=== PATIENT | male | born 1950 | race Caucasian/White ===

== ENCOUNTER → 2016-12-25 | Outpatient (CLI) | payer MEDICARE, MEDICAID | LOC: MW.CHFP 14:12 | PROVIDERS: ATTEND Nurse Practitioner Family | DX: Z12.5 Encounter for screening for malignant neoplasm of prostate (principal); N50.819 Testicular pain, unspecified | CPT/HCPCS: 36415; 81001; 87086; G0103; G0463 ==

== ENCOUNTER → 2017-01-15 | Outpatient (CLI) | payer MEDICARE, MEDICAID | LOC: MW.CHFP 08:00 | PROVIDERS: ATTEND Nurse Practitioner Family | DX: N52.9 Male erectile dysfunction, unspecified (principal) | CPT/HCPCS: G0463 ==

== ENCOUNTER 2017-07-08 14:49 | Emergency (ER) | payer MEDICARE, MEDICAID ==
[2017-07-08] MEDS ORDERED: Sodium Chloride 0.9% 1,000 ML IV ONE ×2 (15:05→16:46)
[2017-07-08] MEDS ORDERED: Sodium Chloride 0.9% 10 ML Syringe FLUSH PRN (15:06)
[2017-07-08] MEDS ORDERED: Sodium Chloride 0.9% 2.5 ML Syringe FLUSH PRN (15:06)
[2017-07-08] MEDS ORDERED: Morphine 2 MG/ML Syringe IVPUSH ONE (15:07)
[2017-07-08] MEDS ORDERED: Ondansetron 4 MG/2 ML SDV IVPUSH ONE (15:07)
--- NOTE | 2017-07-08 15:11 | EDM.PDOC ---
ED HPI GENERAL MEDICAL PROBLEM - General Chief Complaint: Gastrointestinal Problem Stated Complaint: sick Time Seen by Provider: 07/08/17 14:54 Source of Information: Reports: Patient History Limitations: Reports: No Limitations - History of Present Illness INITIAL COMMENTS - FREE TEXT/NARRATIVE: History of present illness: []Patient had food poisoning 7 days ago followed by an episode of diarrhea and one black liquid stool that he had in his sleep. He did not take any meds and has not been able have a bowel movement since then. He complains of abdominal pain and swelling with an episode of vomiting. He denies any fevers or chills but feels ill. Review of systems: As per history of present illness and below otherwise all systems reviewed and negative. Past medical history: As per history of present illness and as reviewed below otherwise noncontributory. Surgical history: As per history of present illness and as reviewed below otherwise noncontributory. Social history: No reported history of drug or alcohol abuse. Family history: As per history of present illness and as reviewed below otherwise noncontributory. Physical exam: General: Well developed, well nourished in NAD HEENT: Atraumatic, normocephalic, pupils reactive, negative for conjunctival pallor or scleral icterus, mucous membranes moist, throat clear, neck supple, nontender, trachea midline. Lungs: Clear to auscultation, breath sounds equal bilaterally, chest nontender. Heart: S1S2, regular, negative for clicks, rubs, or JVD. Abdomen: Tympanitic bowel sounds distended soft, tender to palpation with rebound. Negative for masses or hepatosplenomegaly. Negative for costovertebral tenderness. Pelvis: Stable nontender. Genitourinary: Deferred. Rectal: Deferred. Extremities: Atraumatic, negative for cords or calf pain. Neurovascular unremarkable. Neuro: Awake, alert, oriented. Cranial nerves II through XII unremarkable. Cerebellum unremarkable. Motor and sensory unremarkable throughout. Exam nonfocal. Diagnostics: []Lab are normal CT abdomen and pelvis shows duodenitis and a possible stomach ulcer versus polyp. Therapeutics: []Patient was given Protonix one dose here there is no active bleeding while present Impression: []Duodenitis and gastric ulcer Plan: []I spoke with Dr. GARCES and he will see this patient tomorrow in his office schedule future upper endoscopy. Patient is to stay on Prilosec twice a day. Definitive disposition and diagnosis as appropriate pending reevaluation and review of above. Abdominal Pain Score (Numeric/FACES): 10 - Related Data Allergies Allergy/AdvReac Type Severity Reaction Status Date / Time No Known Allergies Allergy Verified 07/08/17 14:59 Home Meds: Home Meds Fluticasone Furoate [Flonase Sensimist] 1 spray NASBOTH DAILY 07/08/17 [History] Fluticasone/Salmeterol [Advair 250-50 Diskus] 1 puff INH BID 07/08/17 [History] Gabapentin [Neurontin] 300 mg PO TID 07/08/17 [History] Irbesartan [Irbesartan] 150 mg PO DAILY 07/08/17 [History] Meloxicam [Meloxicam] 15 mg PO DAILY PRN 07/08/17 [History] Omeprazole Magnesium [Prilosec] 10 mg PO BID #60 suspdr.pkt 07/08/17 [Rx] Sildenafil Citrate [Sildenafil] 20 mg PO ASDIRECTED PRN 07/08/17 [History] amLODIPine [Norvasc] 10 mg PO DAILY 07/08/17 [History] atorvaSTATin [Lipitor] 10 mg PO ASDIRECTED 07/08/17 [History] traZODone HCl [Trazodone HCl] 100 mg PO BEDTIME 07/08/17 [History] Past Medical History Cardiovascular History: Reports: High Cholesterol, Hypertension Respiratory History: Reports: COPD - Infectious Disease History Infectious Disease History: Reports: Chicken Pox, Measles, Mumps - Past Surgical History Musculoskeletal Surgical History: Reports: Shoulder Surgery Social & Family History - Family History Family Medical History: Noncontributory - Tobacco Use Smoking Status *Q: Current Every Day Smoker Years of Tobacco use: 50 Packs/Tins Daily: 0.5 - Recreational Drug Use Recreational Drug Use: No ED ROS GENERAL - Review of Systems Review Of Systems: See Below (See history of present illness) ED EXAM, GI/ABD - Physical Exam Exam: See Below (See history of present illness) Course - Vital Signs Last Recorded V/S: Last Vital Signs Temp 37.0 C 07/08/17 14:56 Pulse 70 07/08/17 16:30 Resp 16 07/08/17 16:30 BP 111/68 07/08/17 16:30 Pulse Ox 95 07/08/17 16:30 - Orders/Labs/Meds Orders: Active Orders 24 hr Category Date Time Status Abdomen Pelvis w Cont [CT] Stat Exams 07/08/17 16:04 Taken UA W/MICROSCOPIC [URIN] Stat Lab 07/08/17 15:05 Uncollected Sodium Chloride 0.9% [Saline Flush] Med 07/08/17 15:06 Active 10 ml FLUSH ASDIRECTED PRN Sodium Chloride 0.9% [Saline Flush] Med 07/08/17 15:06 Active 2.5 ml FLUSH ASDIRECTED PRN Saline Lock Insert [OM.PC] Stat Oth 07/08/17 15:05 Ordered Medication Orders Sodium Chloride (Saline Flush) 10 ml FLUSH ASDIRECTED PRN PRN Reason: Keep Vein Open Sodium Chloride (Saline Flush) 2.5 ml FLUSH ASDIRECTED PRN PRN Reason: Keep Vein Open Labs: Laboratory Tests 07/08/17 07/08/17 07/08/17 Range/Units 15:14 15:14 15:14 WBC 11.05 H (4.0-11.0) K/uL RBC 5.13 (4.50-5.90) M/uL Hgb 15.4 (13.0-17.0) g/dL Hct 45.7 (38.0-50.0) % MCV 89.1 (80.0-98.0) fL MCH 30.0 (27.0-32.0) pg MCHC 33.7 (31.0-37.0) g/dL RDW Std Deviation 47.0 (28.0-62.0) fl RDW Coeff of Anna Marie 14 (11.0-15.0) % Plt Count 290 (150-400) K/uL MPV 10.30 (7.40-12.00) fL Neut % (Auto) 68.1 (48.0-80.0) % Lymph % (Auto) 20.8 (16.0-40.0) % Archuleta % (Auto) 8.4 (0.0-15.0) % Eos % (Auto) 2.3 (0.0-7.0) % Baso % (Auto) 0.4 (0.0-1.5) % Neut # (Auto) 7.5 H (1.4-5.7) K/uL Lymph # (Auto) 2.3 (0.6-2.4) K/uL Archuleta # (Auto) 0.9 H (0.0-0.8) K/uL Eos # (Auto) 0.3 (0.0-0.7) K/uL Baso # (Auto) 0.0 (0.0-0.1) K/uL Nucleated RBC % 0.0 /100WBC Nucleated RBCs # 0 K/uL Lactate 1.7 (0.20-2.00) mmol/L Sodium 136 (136-146) mmol/L Potassium 4.4 (3.5-5.1) mmol/L Chloride 102 (98-110) mmol/L Carbon Dioxide 26 (21-31) mmol/L BUN 22 (6.0-23.0) mg/dL Creatinine 1.2 (0.6-1.5) mg/dL Est Cr Clr Drug Dosing 66.24 mL/min Estimated GFR (MDRD) > 60.0 ml/min Glucose 125 H (60-110) mg/dL Calcium 9.5 (8.8-10.8) mg/dL Total Bilirubin 0.4 (0.1-1.5) mg/dL AST 10 (5-40) IU/L ALT 11 (8-54) IU/L Alkaline Phosphatase 87 (40-150) Total Protein 7.6 (6.0-8.0) g/dL Albumin 4.1 (3.4-4.8) g/dL Globulin 3.5 (2.0-3.5) g/dL Albumin/Globulin Ratio 1.2 L (1.3-2.8) Lipase 31 (7-80) U/L Blood Type Antibody Screen 07/08/17 Range/Units 15:14 WBC (4.0-11.0) K/uL RBC (4.50-5.90) M/uL Hgb (13.0-17.0) g/dL Hct (38.0-50.0) % MCV (80.0-98.0) fL MCH (27.0-32.0) pg MCHC (31.0-37.0) g/dL RDW Std Deviation (28.0-62.0) fl RDW Coeff of Anna Marie (11.0-15.0) % Plt Count (150-400) K/uL MPV (7.40-12.00) fL Neut % (Auto) (48.0-80.0) % Lymph % (Auto) (16.0-40.0) % Archuleta % (Auto) (0.0-15.0) % Eos % (Auto) (0.0-7.0) % Baso % (Auto) (0.0-1.5) % Neut # (Auto) (1.4-5.7) K/uL Lymph # (Auto) (0.6-2.4) K/uL Archuleta # (Auto) (0.0-0.8) K/uL Eos # (Auto) (0.0-0.7) K/uL Baso # (Auto) (0.0-0.1) K/uL Nucleated RBC % /100WBC Nucleated RBCs # K/uL Lactate (0.20-2.00) mmol/L Sodium (136-146) mmol/L Potassium (3.5-5.1) mmol/L Chloride (98-110) mmol/L Carbon Dioxide (21-31) mmol/L BUN (6.0-23.0) mg/dL Creatinine (0.6-1.5) mg/dL Est Cr Clr Drug Dosing mL/min Estimated GFR (MDRD) ml/min Glucose (60-110) mg/dL Calcium (8.8-10.8) mg/dL Total Bilirubin (0.1-1.5) mg/dL AST (5-40) IU/L ALT (8-54) IU/L Alkaline Phosphatase (40-150) Total Protein (6.0-8.0) g/dL Albumin (3.4-4.8) g/dL Globulin (2.0-3.5) g/dL Albumin/Globulin Ratio (1.3-2.8) Lipase (7-80) U/L Blood Type O POSITIVE Antibody Screen NEGATIVE Meds: Medications Generic Name Dose Route Start Last Admin Trade Name Freq PRN Reason Stop Dose Admin Sodium Chloride 10 ml 07/08/17 15:06 Saline Flush FLUSH ASDIRECTED PRN Keep Vein Open Sodium Chloride 2.5 ml 07/08/17 15:06 Saline Flush FLUSH ASDIRECTED PRN Keep Vein Open Discontinued Medications Generic Name Dose Route Start Last Admin Trade Name Tiera PRN Reason Stop Dose Admin Sodium Chloride 1,000 mls @ 999 mls/hr 07/08/17 15:05 07/08/17 15:28 Normal Saline IV 07/08/17 16:05 999 mls/hr .Bolus ONE Administration Sodium Chloride 1,000 mls @ 999 mls/hr 07/08/17 16:46 07/08/17 17:16 Normal Saline IV 07/08/17 17:46 999 mls/hr .Bolus ONE Administration Iopamidol 90 ml 07/08/17 16:30 07/08/17 16:30 Isovue Multipack-370 (76%) IVPUSH 07/08/17 16:31 90 ml ONETIME STA Administration Morphine Sulfate 2 mg 07/08/17 15:07 07/08/17 15:26 Morphine IVPUSH 07/08/17 15:08 2 mg ONETIME ONE Administration Ondansetron HCl 4 mg 07/08/17 15:07 07/08/17 15:27 Zofran IVPUSH 07/08/17 15:08 4 mg ONETIME ONE Administration Pantoprazole Sodium 80 mg 07/08/17 18:13 Protonix Iv IVPUSH 07/08/17 18:14 .BOLUS ONE Departure - Departure Time of Disposition: 18:30 Disposition: Home, Self-Care 01 Condition: Good Clinical Impression: Duodenitis Gastric ulcer Qualifiers: Gastric ulcer chronicity: unspecified ulcer chronicity Gastric ulcer complication status: with hemorrhage Qualified Code(s): K25.4 - Chronic or unspecified gastric ulcer with hemorrhage - Discharge Information Prescriptions: Omeprazole Magnesium [Prilosec] 10 mg PO BID #60 suspdr.pkt Referrals: Tiffani Cortez NP [Primary Care Provider] - Forms: ED Department Discharge Additional Instructions: The following information is given to patients seen in the emergency department who are being discharged to home. This information is to outline your options for follow-up care. We provide all patients seen in our emergency department with a follow-up referral. The need for follow-up, as well as the timing and circumstances, are variable depending upon the specifics of your emergency department visit. If you don't have a primary care physician on staff, we will provide you with a referral. We always advise you to contact your personal physician following an emergency department visit to inform them of the circumstance of the visit and for follow-up with them and/or the need for any referrals to a consulting specialist. The emergency department will also refer you to a specialist when appropriate. This referral assures that you have the opportunity for follow-up care with a specialist. All of these measure are taken in an effort to provide you with optimal care, which includes your follow-up. Under all circumstances we always encourage you to contact your private physician who remains a resource for coordinating your care. When calling for follow-up care, please make the office aware that this follow-up is from your recent emergency room visit. If for any reason you are refused follow-up, please contact the [facility] Emergency Department at and asked to speak to the emergency department charge nurse. Take Prilosec twice a day follow-up with Dr. Garces tomorrow [facility] Special[facility] - General Surgery Professional Building [address] [place] [address], [address] [place] [address] - My Orders Last 24 Hours: My Active Orders 07/08/17 15:05 UA W/MICROSCOPIC [URIN] Stat Saline Lock Insert [OM.PC] Stat 07/08/17 15:06 Sodium Chloride 0.9% [Saline Flush] 10 ml FLUSH ASDIRECTED PRN Sodium Chloride 0.9% [Saline Flush] 2.5 ml FLUSH ASDIRECTED PRN 07/08/17 16:04 Abdomen Pelvis w Cont [CT] Stat - Assessment/Plan Last 24 Hours: My Active Orders 07/08/17 15:05 UA W/MICROSCOPIC [URIN] Stat Saline Lock Insert [OM.PC] Stat 07/08/17 15:06 Sodium Chloride 0.9% [Saline Flush] 10 ml FLUSH ASDIRECTED PRN Sodium Chloride 0.9% [Saline Flush] 2.5 ml FLUSH ASDIRECTED PRN 07/08/17 16:04 Abdomen Pelvis w Cont [CT] Stat
[2017-07-08 15:50] LABS: CHLORIDE,CL 102 mmol/L (98-110); SODIUM,NA 136 mmol/L (136-146)
--- NOTE | 2017-07-08 16:04 | CR ---
EXAMINATION: Portable chest radiograph. HISTORY: Pain. FINDINGS: The trachea is midline. The cardiomediastinal silhouette is within normal limits. No pulmonary infilt rates, effusions or pneumothorax. Chronic interstitial prominence is noted. Osseous structures appear unremarkable. IMPRESSION: Chronic interstitial changes without acute cardiopulmonary finding.
[2017-07-08] MEDS ORDERED: Iopamidol 755 MG/ML 500 ML Multipack Bottle IVPUSH STA (16:30)
[2017-07-08] MEDS ORDERED: Pantoprazole 40 MG Vial IVPUSH ONE (18:13)
--- NOTE | 2017-07-09 10:16 | CT ---
EXAM DATE: 07/08/17 PATIENT'S AGE: 66 Patient: JAMAR GEORGE Facility: [place], [place] Site . Site : 1950 Study: CT Abdomen/Pelvis [id number] 5:26:44 PM Ordering Physician: Zane Thorne Final Report: INDICATION: Abdominal pain TECHNIQUE: CT abdomen and pelvis acquired with IV contrast. COMPARISON: 09/28/2009 FINDINGS: Lower chest: Mild right lower lobe atelectasis. A 2 millimeter left lower lobe nodule on the 1st image, stable. Liver: Unremarkable. Spleen: Unremarkable. Pancreas: Unremarkable. Gallbladder and bile ducts: Unremarkable. Adrenal glands: Mild adrenal thickening and nodularity again noted. Kidneys: No hydronephrosis. Bilateral renal cysts and subcentimeter low-density lesions. Small amount of increased attenuation along the posterior aspect of the dominant left renal upper pole cyst. GI tract: Wall thickening and edema in the duodenal bulb, more prominent along the medial wall, with a 2.5 x 1.9 centimeter peripherally enhancing outpouching of fluid and gas inferomedially on images 49 -52, not seen on the prior study, compatible with a large deep ulcer versus a new diverticulum. Mild thickening of the gastric antral wall. Stranding adjacent to the proximal duodenum. Fluid- filled abdominal and pelvic small bowel segments are nonspecific, without evidence of high-grade mechanical small bowel obstruction. A normal appendix. No significant pericolonic changes. At least 1 colonic diverticulum seen. Vascular structures: Atherosclerotic changes. Lymph nodes: A borderline portacaval lymph node measuring 1.1 centimeters in short axis on image 50 and additional shotty subcentimeter upper abdominal lymph nodes. Miscellaneous: No significant free fluid or free air. Pelvic Organs: A prominent prostate. A small soft tissue density along the anterior bladder wall probably represents a small urachal remnant. Bones: Unremarkable for age. IMPRESSION: Asymmetrical wall thickening and edema of the duodenal bulb with adjacent stranding consistent with focal duodenitis, with possible involvement of the gastric antrum. A large deep regional ulcer versus a new diverticulum seen. Recommend endoscopic evaluation. Fluid-filled small bowel segments, nonspecific. Mild enteritis is not excluded. Renal cysts. A mildly complicated dominant left renal upper pole cyst. Recommend sonographic correlation. Shotty upper abdominal lymph nodes. A prominent prostate. Dictated by Gunnar Arboleda MD @ 07/08/2017 6:08:52 PM Dictated by: Gunnar Arboleda MD @ 07/08/2017 18:09:08 (Electronic Signature) Report Signed by Proxy. MTDD
== END 2017-07-08 18:40 | disposition home or self-care (01) ==
LOC: MW.ED 14:49
DX: K29.80 Duodenitis without bleeding (principal); K25.4 Chronic or unspecified gastric ulcer with hemorrhage; I10 Essential (primary) hypertension; F17.210 Nicotine dependence, cigarettes, uncomplicated; E78.00 Pure hypercholesterolemia, unspecified; Z79.899 Other long term (current) drug therapy
CPT/HCPCS: 36415; 71010; 74177; 80053; 83605; 83690; 85025; 86850; 86900; 86901; 96361; 96374; 96375; 99284; C9113; J2270; J2405; J7040; Q9967

== ENCOUNTER 2017-08-14 11:34 | Day surgery (SDC) | payer MEDICARE, MEDICAID ==
[~2017-08-14 11:34] MED LIST: Lactated Ringers 1,000 ML IV SCH
[2017-08-14] MEDS ORDERED: Midazolam 1 MG/ML 2 ML SDV ONE (11:49)
[2017-08-14] MEDS ORDERED: fentaNYL 100 MCG/2 ML SDV ONE (11:49)
[2017-08-14] MEDS ORDERED: Propofol 200 MG/20 ML SDV ONE (11:49)
--- NOTE | 2017-08-14 12:30 | PCM.PREANE ---
Preanesthetic Assessment - Anesthesia/Transfusion/Family Hx Anesthesia History: Prior Anesthesia Without Reaction Family History of Anesthesia Reaction: No Transfusion History: No Prior Transfusion(s) Intubation History: Unknown - Review of Systems General: No Symptoms Pulmonary: No Symptoms Cardiovascular: No Symptoms Gastrointestinal: Abdominal Pain Neurological: No Symptoms Other: Reports: None - Physical Assessment O2 Sat by Pulse Oximetry: 97 Respiratory Rate: 16 Vital Signs: Last Vital Signs Temp 35.9 C 08/14/17 12:11 Pulse 97 08/14/17 12:11 Resp 16 08/14/17 12:11 BP 132/94 H 08/14/17 12:11 Pulse Ox 97 08/14/17 12:11 ASA Class: 3 Mental Status: Alert & Oriented x3 Airway Class: Mallampati = 2 Dentition: Reports: Missing Tooth/Teeth (multiple upper and lower) Thyro-Mental Finger Breadths: 3 Mouth Opening Finger Breadths: 2 ROM/Head Extension: Limited/Partial Lungs: Clear to Auscultation, Normal Respiratory Effort, Decreased Breath Sounds Cardiovascular: Regular Rate, Regular Rhythm - Allergies Allergies/Adverse Reactions: Allergies Allergy/AdvReac Type Severity Reaction Status Date / Time No Known Allergies Allergy Verified 07/08/17 14:59 - Blood Blood Available: No - Anesthesia Plan Pre-Op Medication Ordered: None - Acknowledgements Anesthesia Type Planned: MAC Pt an Appropriate Candidate for the Planned Anesthesia: Yes Alternatives and Risks of Anesthesia Discussed w Pt/Guardian: Yes Pt/Guardian Understands and Agrees with Anesthesia Plan: Yes PreAnesthesia Questionnaire HEENT History: Reports: Other (See Below) Other HEENT History: wears reading glasses Cardiovascular History: Reports: High Cholesterol, Hypertension Respiratory History: Reports: COPD, SOB Gastrointestinal History: Reports: GERD Genitourinary History: Reports: None Musculoskeletal History: Reports: Back Pain, Chronic, Fracture Other Musculoskeletal History: hx fx ribs Neurological History: Reports: None Psychiatric History: Reports: Anxiety Endocrine/Metabolic History: Reports: Other (See Below) (borderline diabetic ( prediabetes)) Oncologic (Cancer) History: Reports: Other (See Below) Other Oncologic History: melanoma Dermatologic History: Reports: Melanoma Other Dermatologic History: states melanoma to arms - Infectious Disease History Infectious Disease History: Reports: Chicken Pox, Measles, Mumps - Past Surgical History Head Surgeries/Procedures: Reports: None HEENT Surgical History: Reports: Other (See Below) Other HEENT Surgeries/Procedures: hx exc of jaw cyst, multiple teeth extraction GI Surgical History: Reports: Colonoscopy (in 80's) Musculoskeletal Surgical History: Reports: Shoulder Surgery (left shoulder surgery) Other Surgical History Comment: exc. of benign soft tissue tumor from left side of his neck - SUBSTANCE USE Smoking Status *Q: Current Every Day Smoker (1 ppd, wears nicotin patch) Recreational Drug Use History: No - HOME MEDS Home Medications: Home Meds Fluticasone Furoate [Flonase Sensimist] 1 spray NASBOTH DAILY 07/08/17 [History] Fluticasone/Salmeterol [Advair 250-50 Diskus] 1 puff INH BID 07/08/17 [History] Gabapentin [Neurontin] 300 mg PO TID 07/08/17 [History] Meloxicam [Meloxicam] 15 mg PO DAILY PRN 07/08/17 [History] Omeprazole Magnesium [Prilosec] 10 mg PO BID #60 suspdr.pkt 07/08/17 [Rx] Sildenafil Citrate [Sildenafil] 5 tab PO ASDIRECTED PRN 07/08/17 [History] amLODIPine [Norvasc] 10 mg PO DAILY 07/08/17 [History] atorvaSTATin [Lipitor] 10 mg PO ASDIRECTED 07/08/17 [History] traZODone HCl [Trazodone HCl] 100 mg PO BEDTIME 07/08/17 [History] Chlorhexidine Gluconate [Peridex] 1 dose GARGLE ASDIRECTED PRN 08/13/17 [History ] - CURRENT (IN HOUSE) MEDS Current Meds: Current Medications Lactated Ringer's (Ringers, Lactated) 1,000 mls @ 125 mls/hr IV ASDIRECTED [facility] Last Admin: 08/14/17 12:13 Dose: 125 mls/hr Discontinued Medications Fentanyl (Sublimaze) Confirm Administered Dose 100 mcg .ROUTE .STK-MED ONE Stop: 08/14/17 11:50 Lidocaine HCl (Xylocaine-Mpf 1%) Confirm Administered Dose 5 ml .ROUTE .STK-MED ONE Stop: 08/14/17 11:51 Midazolam HCl (Versed 1 Mg/Ml) Confirm Administered Dose 2 mg .ROUTE .STK-MED ONE Stop: 08/14/17 11:50 Propofol (Diprivan 20 Ml) Confirm Administered Dose 200 mg .ROUTE .[facility]-MED ONE Stop: 08/14/17 11:50
--- NOTE | 2017-08-14 14:23 | PCM.OPNOTE ---
- General Post-Op/Procedure Note Date of Surgery/Procedure: 08/14/17 Operative Procedure(s): egd w bx. colonoscopy w bx Findings: see dictation [id number] Pre Op Diagnosis: abd pain, and gastric ulcer Post-Op Diagnosis: Same Anesthesia Technique: Moderate Sedation Primary Surgeon: Dickson Garces Pathology: egd bx colon 2 mm sessile polyp at 20 cm when scope withdrawal Condition: Good
--- NOTE | 2017-08-14 14:41 | PCM.POSTAN ---
POST ANESTHESIA ASSESSMENT - MENTAL STATUS Mental Status: Alert, Oriented - RESPIRATORY Respiratory Status: Respiratory Rate WNL, Airway Patent, O2 Saturation Stable - CARDIOVASCULAR CV Status: Pulse Rate WNL, Blood Pressure Stable - GASTROINTESTINAL GI Status: No Symptoms - POST OP HYDRATION Hydration Status: Adequate & Stable
--- NOTE | 2017-08-14 15:10 | PCM48HPAN ---
Post Anesthesia Note - EVALUATION WITHIN 48HRS OF ANESTHETIC Vital Signs in Normal Range: Yes Patient Participated in Evaluation: Yes Respiratory Function Stable: Yes Airway Patent: Yes Cardiovascular Function Stable: Yes Hydration Status Stable: Yes Pain Control Satisfactory: Yes Nausea and Vomiting Control Satisfactory: Yes Mental Status Recovered: Yes
--- NOTE | 2017-08-14 20:38 | OR ---
SURGEON: Dickson Garces MD DATE OF PROCEDURE: 08/14/2017 PREOPERATIVE DIAGNOSIS: Abdominal pain and gastric ulcer. POSTOPERATIVE DIAGNOSIS: Abdominal pain and gastric ulcer. PROCEDURE PERFORMED: 1. EGD with biopsy. 2. Colonoscopy with biopsy. PROCEDURE IN DETAIL: EGD: The patient was taken to the endoscopy room, and with the SALES ASSOCIATE CASHIER, Diprivan was administered. A well-lubricated EGD scope was gently inserted through the oropharynx, down the esophagus, passing through the gastroesophageal junction, into the stomach. The mucosa was examined upon the passage. Any etiology will be noted. Once in the stomach, we continued to advance to the distal antrum, passed through the pylorus into the second portion of the duodenum. Again, the mucosa was examined for any abnormality and etiology. The scope was then retrieved back to the stomach and then retroflexed to look at the fundus of the stomach. If a biopsy was indicated, we will biopsy the antrum, body, and gastroesophageal junction. The air will be sucked out while the scope is retrieved to reduce the patient's discomfort. The patient tolerated the procedure well. There were no intraoperative complications. Dr. Garces was present through the whole procedure. Prior to surgery, a time-out had been called, the patient identified, procedure identified and antibiotic administered. Colonoscopy: The patient was taken to the endoscopy room. A time out was called, patient identified, and procedure identified. Diprivan was then administrated. Patient went from awake to sleep, hearing doctor talking or door closing is normal. Perineum inspection and digital examination were then performed. A well-lubricated colonoscope was gently inserted through the rectum, advanced past the rectosigmoid junction, the descending colon, splenic flexure, transverse colon, hepatic flexure, ascending colon, arrived to the cecum. Cecum was identified as dictated in the finding. Then the scope was carefully withdrawn while attention was paid to the mucosal surface for any abnormality. Air will be sucked out during the scope withdrawal. At the rectum, retroflexed to examine any rectal diseases, fistula or hemorrhoids. During mucosal examination, polyp was noted; picture taken and biopsy performed. Patient tolerated procedure well. There were no intraoperative complications, and Dr. Garces was present throughout the whole procedure. FINDINGS: EGD findings: 1. The patient is easily sedated with SALES ASSOCIATE CASHIER and Diprivan. The patient is soundly snoring. 2. Oropharynx and proximal esophagus are free of disease. No stricture, ulceration, inflammation and GE junction at 40 shows mild salmon color change consistent with acid reflux. Stomach rugae is normal in appearance and has a little bit petechiae, hemorrhagic spot, but there is no really bleeding. No bile, no food, no blood. Antrum is little bit inflamed. Duodenum was grossly normal. Retrieved back to the stomach. On retroflexed look at the fundus of stomach, there was no hiatal hernia and sucked out the air while scoped and biopsy of the antrum, body, GE junction, and sucked out the air while scope pulling out. Colonoscopy findings: 1. The patient is easily sedated with SALES ASSOCIATE CASHIER and Diprivan. The patient is soundly snoring. 2. Bowel prep is average with some liquid stool, some bubbles, and no semi- formed stool. 3. The patient's colon rather straight forward. Cecum indicated by ileocecal fold, one-to-one indentation, and light immittance. An appendix orifice and mucosa examined upon scope pulling out with irrigation. The patient has a tiny 2 mm sessile polyp at a distance of 20 when the scope was pulled out, removed with cold biopsy forceps. Otherwise, no diverticulosis, mass, growth, inflammation, stricture, ulceration, bleeding, and stricture inflammation observed. The patient has mild internal hemorrhoids, no external hemorrhoids. In the anal area in the buttock area, there is some skin disease, looked like a blackhead and many of them, and we will discuss that in the followup appointment with the patient. The patient would benefit from repeat colonoscopy 5-10 years from today or if clinically indicated otherwise. As always, thank you for the kind referral. PRIMARY SURGEON: SECONDARY SURGEON: CHAIN PULLER: REASON CHAIN PULLER WAS NECESSARY: ROLE OF CHAIN PULLER: MODE / PREM /[id number] LIDA
== END 2017-08-14 15:00 | disposition home or self-care (01) ==
LOC: MW.SDS 11:34
PROVIDERS: ATTEND Surgery
DX: K63.5 Polyp of colon (principal); K29.50 Unspecified chronic gastritis without bleeding; K20.9 Esophagitis, unspecified; K64.8 Other hemorrhoids; F41.9 Anxiety disorder, unspecified; J44.9 Chronic obstructive pulmonary disease, unspecified; G89.29 Other chronic pain; M54.5 Low back pain; I10 Essential (primary) hypertension; E78.00 Pure hypercholesterolemia, unspecified; E78.1 Pure hyperglyceridemia; Z79.899 Other long term (current) drug therapy; F17.210 Nicotine dependence, cigarettes, uncomplicated
CPT/HCPCS: 43239; 45380; J2250; J3010; J7120; 00740; 88305; 88312; J2704

== ENCOUNTER 2018-03-26 14:02 | Inpatient (IN) | payer MEDICARE, MEDICAID ==
[2018-03-26] MEDS ORDERED: Sodium Chloride 0.9% 1,000 ML IV ONE (14:23)
[2018-03-26] MEDS ORDERED: Sodium Chloride 0.9% 10 ML Syringe FLUSH PRN (14:28)
[2018-03-26] MEDS ORDERED: Sodium Chloride 0.9% 2.5 ML Syringe FLUSH PRN (14:28)
[2018-03-26] MEDS ORDERED: Pantoprazole 40 MG Vial IVPUSH ONE (14:29)
--- NOTE | 2018-03-26 14:37 | EDM.PDOC ---
ED HPI GENERAL MEDICAL PROBLEM - General Chief Complaint: Syncope Stated Complaint: passed out Time Seen by Provider: 03/26/18 14:07 - History of Present Illness INITIAL COMMENTS - FREE TEXT/NARRATIVE: HISTORY AND PHYSICAL: History of present illness: The patient is a 67-year-old male who follows in our clinic with the nurse practitioner has a history of COPD hypertension hypercholesterolemia and still continues to smoke cigarettes and presents with complaints of a syncopal event that was very brief 3 days ago. The patient says that in the fall he had an attack of peptic ulcer disease and had an endoscopy and colonoscopy with Dr. Garces. I've reviewed that operative note from August 14. He was told that he had a gastric ulcer and he was placed on antacids which he took for a while but he stopped them. He says that 2-3 weeks ago he had another "peptic ulcer disease attack" and he was very constipated for almost a week and then he took a laxative and had copious amounts of black stool. The patient says that 3 days ago he was out in the heat he got lightheaded and the next thing he remembers was being on the wound but was only unconscious briefly. He denies any trauma as a result of that event. He's had no headache neck or back pain no extremity complaints and no sequela of that event. He's had no chest pain or shortness of breath and no abdominal pain. Patient says that he had a bowel movement today which looked normal to him and he has not taken any [id number] meds such as Maalox or Mylanta or Pepto-Bismol. He says he stopped the aunt acid that he was given after his endoscopy and he was only here in the ED as he tried to make an appointment to see his provider in the clinic and was referred here due to these events. He currently does not feel short of breath and has no chest pain and has actually no complaints other than being concerned about his episode of passing out and having generalized weakness. He says he been eating normally. Review of systems: As per history of present illness and below otherwise all systems reviewed and negative. Past medical history: As per history of present illness and as reviewed below otherwise noncontributory. Surgical history: As per history of present illness and as reviewed below otherwise noncontributory. Social history: No reported history of drug or alcohol abuse. Family history: As per history of present illness and as reviewed below otherwise noncontributory. Physical exam: General: Well-developed well-nourished thin man whose vital signs are noted by me. He is very pale appearing overall and somewhat malnourished appearing. HEENT: Atraumatic, normocephalic, pupils reactive, positive for conjunctival pallor , no scleral icterus, mucous membranes tacky, throat clear, neck supple, nontender, trachea midline. There is no evidence of any scalp trauma or bony defects or tenderness of the cervical spine Lungs: Clear to auscultation with scattered wheezing bilaterally but no work of breathing or stridor, breath sounds equal bilaterally, chest nontender. Heart: S1S2, regular rhythm slightly tachycardic rate on my evaluation, negative for clicks, rubs, or JVD. Abdomen: Soft, nondistended, nontender. His abdomen is rotund and there is slight tympany on percussion but bowel sounds are normoactive. Negative for masses or hepatosplenomegaly. Negative for costovertebral tenderness. Pelvis: Stable nontender. Genitourinary: Deferred. Rectal: Normal tone and only scant stool in the vault which is Hemoccult positive it looked brown in color Extremities: Atraumatic, negative for cords or calf pain. Neurovascular unremarkable. Full range of motion without defects or deficits Neuro: Awake, alert, oriented. Cranial nerves II through XII unremarkable. Cerebellum unremarkable. Motor and sensory unremarkable throughout. Exam nonfocal. Back: There are no midline step-offs in his defects of the thoracic or lumbar spine and no soft tissue evidence of any trauma Diagnostics: EKG CBC CMP amylase lipase INR type and screen chest x-ray UA H pylori EtOH level Therapeutics: IV O2 monitor IV fluids Protonix bolus Protonix drip, 1 unit of packed red blood cells 1615: As was discussed with our hospitalist Dr. Andrade was aware of all testing results and would like me to order a unit of blood and a Protonix drip. He accepts the patient for admission. Patient is aware of this plan and accepts. Patient has maintained his blood pressure and pulse throughout his stay here. Impression: Syncopal event 3 days ago, upper GI bleed with symptomatic anemia stable Definitive disposition and diagnosis as appropriate pending reevaluation and review of above. Left Upper Abdomen Pain Score (Numeric/FACES): 2 - Related Data Allergies Allergy/AdvReac Type Severity Reaction Status Date / Time No Known Allergies Allergy Verified 03/26/18 14:26 Home Meds: Home Meds Fluticasone Furoate [Flonase Sensimist] 1 spray NASBOTH DAILY 07/08/17 [History] Fluticasone/Salmeterol [Advair 250-50 Diskus] 1 puff INH BID 07/08/17 [History] Gabapentin [Neurontin] 300 mg PO TID 07/08/17 [History] Meloxicam 15 mg PO DAILY PRN 07/08/17 [History] Omeprazole Magnesium [Prilosec] 10 mg PO BID #60 suspdr.pkt 07/08/17 [Rx] Sildenafil Citrate [Sildenafil] 5 tab PO ASDIRECTED PRN 07/08/17 [History] amLODIPine [Norvasc] 10 mg PO DAILY 07/08/17 [History] atorvaSTATin [Lipitor] 10 mg PO ASDIRECTED 07/08/17 [History] traZODone HCl [Trazodone HCl] 100 mg PO BEDTIME 07/08/17 [History] Gabapentin [Neurontin] 300 mg PO BID 03/26/18 [History] Irbesartan 150 mg PO DAILY 03/26/18 [History] Past Medical History HEENT History: Reports: Other (See Below) Other HEENT History: wears reading glasses Cardiovascular History: Reports: High Cholesterol, Hypertension Respiratory History: Reports: COPD, SOB Gastrointestinal History: Reports: GERD Genitourinary History: Reports: None Musculoskeletal History: Reports: Back Pain, Chronic, Fracture Other Musculoskeletal History: hx fx ribs Neurological History: Reports: None Psychiatric History: Reports: Anxiety Endocrine/Metabolic History: Reports: Other (See Below) (borderline diabetic ( prediabetes)) Oncologic (Cancer) History: Reports: Other (See Below) Other Oncologic History: melanoma Dermatologic History: Reports: Melanoma Other Dermatologic History: states melanoma to arms - Infectious Disease History Infectious Disease History: Reports: Chicken Pox, Measles, Mumps - Past Surgical History Head Surgeries/Procedures: Reports: None HEENT Surgical History: Reports: Other (See Below) Other HEENT Surgeries/Procedures: hx exc of jaw cyst, multiple teeth extraction GI Surgical History: Reports: Colonoscopy (in 80's) Musculoskeletal Surgical History: Reports: Shoulder Surgery (left shoulder surgery) Other Surgical History Comment: exc. of benign soft tissue tumor from left side of his neck Social & Family History - Family History Family Medical History: Noncontributory ED ROS GENERAL - Review of Systems Review Of Systems: ROS reveals no pertinent complaints other than HPI. ED EXAM, GENERAL - Physical Exam Exam: See Below (See dictation) Course - Vital Signs Last Recorded V/S: Last Vital Signs Temp 36.4 C 03/26/18 16:04 Pulse 98 03/26/18 16:04 Resp 14 03/26/18 16:04 BP 107/68 03/26/18 16:04 Pulse Ox 97 03/26/18 16:04 - Orders/Labs/Meds Orders: Active Orders 24 hr Category Date Time Status Patient Status [ADT] Stat ADT 03/26/18 16:34 Ordered Cardiac Monitoring [RC] . DIRECTED Care 03/26/18 14:27 Active EKG Documentation Completion [RC] STAT Care 03/26/18 14:27 Active Oxygen Therapy, ED [RC] ASDIRECTED Care 03/26/18 14:27 Active Pulse Oximetry [RC] ASDIRECTED Care 03/26/18 14:27 Active RED BLOOD CELLS LP [BBK] Stat Lab 03/26/18 16:33 Ordered TYPE AND SCREEN [BBK] Stat Lab 03/26/18 14:35 Results UA W/MICROSCOPIC [URIN] Stat Lab 03/26/18 16:10 Ordered Pantoprazole [ProTONIX IV] 80 mg Med 03/26/18 16:45 Ordered Sodium Chloride 0.9% [Normal Saline] 100 ml IV .Continuous Sodium Chloride 0.9% [Normal Saline] 1,000 ml Med 03/26/18 16:15 Active IV ASDIRECTED Sodium Chloride 0.9% [Saline Flush] Med 03/26/18 14:28 Active 10 ml FLUSH ASDIRECTED PRN Sodium Chloride 0.9% [Saline Flush] Med 03/26/18 14:28 Active 2.5 ml FLUSH ASDIRECTED PRN Saline Lock Insert [OM.PC] Stat Oth 03/26/18 14:27 Ordered Transfuse Red Blood Cells [COMM] Stat Oth 03/26/18 16:33 Ordered Medication Orders Sodium Chloride (Normal Saline) 1,000 mls @ 125 mls/hr IV ASDIRECTED SHEELA Pantoprazole Sodium 80 mg/ (Sodium Chloride) 100 mls @ 10 mls/hr IV .Continuous SHEELA Sodium Chloride (Saline Flush) 10 ml FLUSH ASDIRECTED PRN PRN Reason: Keep Vein Open Sodium Chloride (Saline Flush) 2.5 ml FLUSH ASDIRECTED PRN PRN Reason: Keep Vein Open Labs: Laboratory Tests 03/26/18 03/26/18 03/26/18 Range/Units 14:23 14:23 14:23 WBC 15.89 H (4.0-11.0) K/uL RBC 2.54 L (4.50-5.90) M/uL Hgb 7.7 L (13.0-17.0) g/dL Hct 23.6 L (38.0-50.0) % MCV 92.9 (80.0-98.0) fL MCH 30.3 (27.0-32.0) pg MCHC 32.6 (31.0-37.0) g/dL RDW Std Deviation 53.1 (28.0-62.0) fl RDW Coeff of Anna Marie 17 H (11.0-15.0) % Plt Count 507 H (150-400) K/uL MPV 9.00 (7.40-12.00) fL Add Manual Diff YES Neutrophils % (Manual) 62 (48.0-80.0) % Band Neutrophils % 2 % Lymphocytes % (Manual) 25 (16.0-40.0) % Monocytes % (Manual) 6 (0.0-15.0) % Eosinophils % (Manual) 5 (0.0-7.0) % Nucleated RBC % 0.6 /100WBC Absolute Seg Neuts 9.9 H (1.4-5.7) Band Neutrophils # 0.3 Lymphocytes # (Manual) 4.0 H (0.6-2.4) Monocytes # (Manual) 1.0 H (0.0-0.8) Eosinophils # (Manual) 0.8 H (0.0-0.7) Nucleated RBCs # 0 K/uL INR 0.95 Sodium 135 L (136-148) mmol/L Potassium 4.1 (3.5-5.1) mmol/L Chloride 100 (98-107) mmol/L Carbon Dioxide 28.0 (21.0-32.0) mmol/L BUN 15 (7.0-18.0) mg/dL Creatinine 1.2 (0.8-1.3) mg/dL Est Cr Clr Drug Dosing 64.97 mL/min Estimated GFR (MDRD) > 60.0 ml/min Glucose 101 (74-106) mg/dL Calcium 8.3 L (8.5-10.1) mg/dL Total Bilirubin 0.1 L (0.2-1.0) mg/dL AST 10 L (15-37) IU/L ALT 25 (14-63) IU/L Alkaline Phosphatase 57 (46-116) U/L Total Protein 6.2 L (6.4-8.2) g/dL Albumin 3.0 L (3.4-5.0) g/dL Globulin 3.2 (2.0-3.5) g/dL Albumin/Globulin Ratio 0.9 L (1.3-2.8) Amylase 95 (25-115) U/L Lipase (73-393) U/L Urine Color Urine Appearance Urine pH (5.0-8.0) Ur Specific [place] (1.001-1.035) Urine Protein (NEGATIVE) mg/dL Urine Glucose (UA) (NEGATIVE) mg/dL Urine Ketones (NEGATIVE) mg/dL Urine Occult Blood (NEGATIVE) Urine Nitrite (NEGATIVE) Urine Bilirubin (NEGATIVE) Urine Urobilinogen (<2.0) EU/dL Ur Leukocyte Esterase (NEGATIVE) Urine RBC (0-2/HPF) Urine WBC (0-5/HPF) Ur Epithelial Cells (NONE-FEW) Urine Bacteria (NEGATIVE) Ethyl Alcohol mg/dL H. pylori IgG Antibody (NEG) Blood Type Antibody Screen Crossmatch 03/26/18 03/26/18 03/26/18 Range/Units 14:23 14:23 14:23 WBC (4.0-11.0) K/uL RBC (4.50-5.90) M/uL Hgb (13.0-17.0) g/dL Hct (38.0-50.0) % MCV (80.0-98.0) fL MCH (27.0-32.0) pg MCHC (31.0-37.0) g/dL RDW Std Deviation (28.0-62.0) fl RDW Coeff of Anna Marie (11.0-15.0) % Plt Count (150-400) K/uL MPV (7.40-12.00) fL Add Manual Diff Neutrophils % (Manual) (48.0-80.0) % Band Neutrophils % % Lymphocytes % (Manual) (16.0-40.0) % Monocytes % (Manual) (0.0-15.0) % Eosinophils % (Manual) (0.0-7.0) % Nucleated RBC % /100WBC Absolute Seg Neuts (1.4-5.7) Band Neutrophils # Lymphocytes # (Manual) (0.6-2.4) Monocytes # (Manual) (0.0-0.8) Eosinophils # (Manual) (0.0-0.7) Nucleated RBCs # K/uL INR Sodium (136-148) mmol/L Potassium (3.5-5.1) mmol/L Chloride (98-107) mmol/L Carbon Dioxide (21.0-32.0) mmol/L BUN (7.0-18.0) mg/dL Creatinine (0.8-1.3) mg/dL Est Cr Clr Drug Dosing mL/min Estimated GFR (MDRD) ml/min Glucose (74-106) mg/dL Calcium (8.5-10.1) mg/dL Total Bilirubin (0.2-1.0) mg/dL AST (15-37) IU/L ALT (14-63) IU/L Alkaline Phosphatase (46-116) U/L Total Protein (6.4-8.2) g/dL Albumin (3.4-5.0) g/dL Globulin (2.0-3.5) g/dL Albumin/Globulin Ratio (1.3-2.8) Amylase (25-115) U/L Lipase 238 (73-393) U/L Urine Color Urine Appearance Urine pH (5.0-8.0) Ur Specific [place] (1.001-1.035) Urine Protein (NEGATIVE) mg/dL Urine Glucose (UA) (NEGATIVE) mg/dL Urine Ketones (NEGATIVE) mg/dL Urine Occult Blood (NEGATIVE) Urine Nitrite (NEGATIVE) Urine Bilirubin (NEGATIVE) Urine Urobilinogen (<2.0) EU/dL Ur Leukocyte Esterase (NEGATIVE) Urine RBC (0-2/HPF) Urine WBC (0-5/HPF) Ur Epithelial Cells (NONE-FEW) Urine Bacteria (NEGATIVE) Ethyl Alcohol < 3.0 mg/dL H. pylori IgG Antibody NEGATIVE (NEG) Blood Type Antibody Screen Crossmatch 03/26/18 03/26/18 Range/Units 14:35 16:10 WBC (4.0-11.0) K/uL RBC (4.50-5.90) M/uL Hgb (13.0-17.0) g/dL Hct (38.0-50.0) % MCV (80.0-98.0) fL MCH (27.0-32.0) pg MCHC (31.0-37.0) g/dL RDW Std Deviation (28.0-62.0) fl RDW Coeff of Anna Marie (11.0-15.0) % Plt Count (150-400) K/uL MPV (7.40-12.00) fL Add Manual Diff Neutrophils % (Manual) (48.0-80.0) % Band Neutrophils % % Lymphocytes % (Manual) (16.0-40.0) % Monocytes % (Manual) (0.0-15.0) % Eosinophils % (Manual) (0.0-7.0) % Nucleated RBC % /100WBC Absolute Seg Neuts (1.4-5.7) Band Neutrophils # Lymphocytes # (Manual) (0.6-2.4) Monocytes # (Manual) (0.0-0.8) Eosinophils # (Manual) (0.0-0.7) Nucleated RBCs # K/uL INR Sodium (136-148) mmol/L Potassium (3.5-5.1) mmol/L Chloride (98-107) mmol/L Carbon Dioxide (21.0-32.0) mmol/L BUN (7.0-18.0) mg/dL Creatinine (0.8-1.3) mg/dL Est Cr Clr Drug Dosing mL/min Estimated GFR (MDRD) ml/min Glucose (74-106) mg/dL Calcium (8.5-10.1) mg/dL Total Bilirubin (0.2-1.0) mg/dL AST (15-37) IU/L ALT (14-63) IU/L Alkaline Phosphatase (46-116) U/L Total Protein (6.4-8.2) g/dL Albumin (3.4-5.0) g/dL Globulin (2.0-3.5) g/dL Albumin/Globulin Ratio (1.3-2.8) Amylase (25-115) U/L Lipase (73-393) U/L Urine Color YELLOW Urine Appearance CLEAR Urine pH 6.0 (5.0-8.0) Ur Specific [place] 1.010 (1.001-1.035) Urine Protein NEGATIVE (NEGATIVE) mg/dL Urine Glucose (UA) NEGATIVE (NEGATIVE) mg/dL Urine Ketones NEGATIVE (NEGATIVE) mg/dL Urine Occult Blood NEGATIVE (NEGATIVE) Urine Nitrite NEGATIVE (NEGATIVE) Urine Bilirubin NEGATIVE (NEGATIVE) Urine Urobilinogen 0.2 (<2.0) EU/dL Ur Leukocyte Esterase NEGATIVE (NEGATIVE) Urine RBC 0-1 (0-2/HPF) Urine WBC 0-1 (0-5/HPF) Ur Epithelial Cells RARE (NONE-FEW) Urine Bacteria RARE (NEGATIVE) Ethyl Alcohol mg/dL H. pylori IgG Antibody (NEG) Blood Type O POSITIVE Antibody Screen NEGATIVE Crossmatch See Detail Meds: Medications Generic Name Dose Route Start Last Admin Trade Name Freq PRN Reason Stop Dose Admin Sodium Chloride 1,000 mls @ 125 mls/hr 03/26/18 16:15 Normal Saline IV ASDIRECTED SHEELA Pantoprazole Sodium 80 mg/ 100 mls @ 10 mls/hr 03/26/18 16:45 Sodium Chloride IV .Continuous SHEELA Sodium Chloride 10 ml 03/26/18 14:28 Saline Flush FLUSH ASDIRECTED PRN Keep Vein Open Sodium Chloride 2.5 ml 03/26/18 14:28 Saline Flush FLUSH ASDIRECTED PRN Keep Vein Open Discontinued Medications Generic Name Dose Route Start Last Admin Trade Name Freq PRN Reason Stop Dose Admin Sodium Chloride 1,000 mls @ 999 mls/hr 03/26/18 14:23 03/26/18 14:41 Normal Saline IV 03/26/18 15:23 999 mls/hr .Bolus ONE Administration Pantoprazole Sodium 80 mg 03/26/18 14:29 03/26/18 14:44 Protonix Iv IVPUSH 03/26/18 14:30 80 mg .BOLUS ONE Administration Departure - Departure Time of Disposition: 16:43 Disposition: Admitted As Inpatient 68 Condition: Good Clinical Impression: Anemia Qualifiers: Anemia type: unspecified type Qualified Code(s): D64.9 - Anemia, unspecified Syncope Qualifiers: Syncope type: unspecified Qualified Code(s): R55 - Syncope and collapse - Discharge Information Referrals: Tiffani Cortez NP [Primary Care Provider] - Forms: ED Department Discharge - My Orders Last 24 Hours: My Active Orders 03/26/18 14:27 Cardiac Monitoring [RC] . DIRECTED EKG Documentation Completion [RC] STAT Oxygen Therapy, ED [RC] ASDIRECTED Pulse Oximetry [RC] ASDIRECTED Saline Lock Insert [OM.PC] Stat 03/26/18 14:28 Sodium Chloride 0.9% [Saline Flush] 10 ml FLUSH ASDIRECTED PRN Sodium Chloride 0.9% [Saline Flush] 2.5 ml FLUSH ASDIRECTED PRN 03/26/18 14:35 TYPE AND SCREEN [BBK] Stat 03/26/18 16:10 UA W/MICROSCOPIC [URIN] Stat 03/26/18 16:15 Sodium Chloride 0.9% [Normal Saline] 1,000 ml IV ASDIRECTED 03/26/18 16:33 RED BLOOD CELLS LP [BBK] Stat Transfuse Red Blood Cells [COMM] Stat 03/26/18 16:34 Patient Status [ADT] Stat 03/26/18 16:45 Pantoprazole [ProTONIX IV] 80 mg Sodium Chloride 0.9% [Normal Saline] 100 ml IV .Continuous - Assessment/Plan Last 24 Hours: My Active Orders 03/26/18 14:27 Cardiac Monitoring [RC] . DIRECTED EKG Documentation Completion [RC] STAT Oxygen Therapy, ED [RC] ASDIRECTED Pulse Oximetry [RC] ASDIRECTED Saline Lock Insert [OM.PC] Stat 03/26/18 14:28 Sodium Chloride 0.9% [Saline Flush] 10 ml FLUSH ASDIRECTED PRN Sodium Chloride 0.9% [Saline Flush] 2.5 ml FLUSH ASDIRECTED PRN 03/26/18 14:35 TYPE AND SCREEN [BBK] Stat 03/26/18 16:10 UA W/MICROSCOPIC [URIN] Stat 03/26/18 16:15 Sodium Chloride 0.9% [Normal Saline] 1,000 ml IV ASDIRECTED 03/26/18 16:33 RED BLOOD CELLS LP [BBK] Stat Transfuse Red Blood Cells [COMM] Stat 03/26/18 16:34 Patient Status [ADT] Stat 03/26/18 16:45 Pantoprazole [ProTONIX IV] 80 mg Sodium Chloride 0.9% [Normal Saline] 100 ml IV .Continuous
[2018-03-26 15:19] LABS: CHLORIDE,CL 100 mmol/L (98-107); SODIUM,NA 135 mmol/L (136-148)
--- NOTE | 2018-03-26 15:28 | CR ---
EXAMINATION: Portable chest radiograph. HISTORY: Shortness of breath. COMPARISON: 07/08/2017. FINDINGS: The trachea is midline. The cardiomediastinal silhouette is within normal limits. No pulmonary infilt rates, effusions or pneumothorax. Mild chronic interstitial prominence and hyperinflation. Osseous structures appear unremarkable. IMPRESSION: No acute cardiopulmonary process.
[2018-03-26] MEDS ORDERED: Sodium Chloride 0.9% 1,000 ML IV SCH (16:15)
[2018-03-26] MEDS ORDERED: Pantoprazole 80 MG in Sodium Chloride 0.9% 100 ML IV SCH (16:45)
--- NOTE | 2018-03-26 17:18 | PCM.HP ---
H&P History of Present Illness - General Date of Service: 03/26/18 Admit Problem/Dx: Admission Diagnosis/Problem Admission Diagnosis/Problem Syncope/ Upper GI bleed Source of Information: Patient History Limitations: Reports: No Limitations - History of Present Illness Initial Comments - Free Text/Narative: This 67 year old male with pmh of COPD, tobacco abuse, and PUD presented to the ED today with complaints of syncope 3 days ago. he wsa attempting to get an appointment with his PCP, but they recommended he be evaluated in the ED. He reports he has a ulcer attack 2-3 weeks ago followed by some constipation in which he took a laxative and subsequently had a very large black stool follow by liquid. Denies arminda blood per stools. Had a stool today that was streaked with black, but appeared "fairly normal." He reports feeling pretty lousy, fatigued and lightheaded if he moves too fast. NO chest pain or palpitations and no shortness of breath. Reports chronic cough, congested, not really productive. No fevers or chills at home. Scant LUQ pain. Denies heavy alcohol use, has not drank in 3-4 months. No NSAID use. Drinks pop, no coffee. Does like spicier foods. He thought his syncope was secondary to being hot and outside working. The patient says that 3 days ago he was out in the heat he got lightheaded and the next thing he remembers was being on the gound but was only unconscious briefly. He denies hitting his head, no headache or neck pain. Reports eating and drinking normally. He is currently in the process of quitting smoking, down to 1/2 ppd from 1 /2 ppd for 50+ years. No recreational drug use. In July he had EGD and colonoscopy with Dr Garces, which revealed PUD. He was treated with Prilosec, which he reports taking for approximately 3-4 months then stopped and has been good up until 2-3 weeks ago. In the ED leukocytosis noted at 15,890 hgb 7.7 HCT 23.6, Platelets 507. Na 135, BUN 15, Cr 1.2. H pylori negative. CXR engative. BPs noted to be 90-100/60s HR 90-100s. No hypoxia noted. He was treated with IVFs and Protonix bolus 80 mg PCP, Tiffani Cortez NP Upon review of clinic chart, he is on Meloxicam for arthritic pain. Left Upper Abdomen Pain Score (Numeric/FACES): 2 - Related Data Allergies/Adverse Reactions: Allergies Allergy/AdvReac Type Severity Reaction Status Date / Time No Known Allergies Allergy Verified 03/26/18 14:26 Home Medications: Home Meds Fluticasone Furoate [Flonase Sensimist] 1 spray NASBOTH DAILY 07/08/17 [History] Fluticasone/Salmeterol [Advair 250-50 Diskus] 1 puff INH BID 07/08/17 [History] Gabapentin [Neurontin] 300 mg PO TID 07/08/17 [History] Meloxicam 15 mg PO DAILY PRN 07/08/17 [History] Omeprazole Magnesium [Prilosec] 10 mg PO BID #60 suspdr.pkt 07/08/17 [Rx] Sildenafil Citrate [Sildenafil] 5 tab PO ASDIRECTED PRN 07/08/17 [History] amLODIPine [Norvasc] 10 mg PO DAILY 07/08/17 [History] atorvaSTATin [Lipitor] 10 mg PO ASDIRECTED 07/08/17 [History] traZODone HCl [Trazodone HCl] 100 mg PO BEDTIME 07/08/17 [History] Gabapentin [Neurontin] 300 mg PO BID 03/26/18 [History] Irbesartan 150 mg PO DAILY 03/26/18 [History] Pantoprazole Sodium [Protonix] 40 mg PO BID #60 tablet. 03/26/18 [Rx] Sucralfate [Carafate] 1 gm PO QIDACANDBED #120 tablet 03/26/18 [Rx] Past Medical History HEENT History: Reports: Other (See Below) Other HEENT History: wears reading glasses Cardiovascular History: Reports: High Cholesterol, Hypertension. Denies: CAD, NC Respiratory History: Reports: COPD, SOB Gastrointestinal History: Reports: GERD, PUD Genitourinary History: Reports: None Musculoskeletal History: Reports: Back Pain, Chronic, Fracture Other Musculoskeletal History: hx fx ribs Neurological History: Reports: None. Denies: CVA, Migraines, TIA Psychiatric History: Reports: Anxiety Endocrine/Metabolic History: Reports: Other (See Below) (borderline diabetic ( prediabetes)) Oncologic (Cancer) History: Reports: Other (See Below) Other Oncologic History: melanoma Dermatologic History: Reports: Melanoma Other Dermatologic History: states melanoma to arms - Infectious Disease History Infectious Disease History: Reports: Chicken Pox, Measles, Mumps - Past Surgical History Head Surgeries/Procedures: Reports: None HEENT Surgical History: Reports: Other (See Below) Other HEENT Surgeries/Procedures: hx exc of jaw cyst, multiple teeth extraction GI Surgical History: Reports: Colonoscopy (in 80's), EGD Musculoskeletal Surgical History: Reports: Shoulder Surgery (left shoulder surgery) Other Surgical History Comment: exc. of benign soft tissue tumor from left side of his neck Social & Family History - Family History Family Medical History: Noncontributory - Tobacco Use Smoking Status *Q: Current Every Day Smoker Years of Tobacco use: 50 Packs/Tins Daily: 0.5 Smoking Cessation Information Provided To Patient: Yes - Caffeine Use Caffeine Use: Reports: Soda - Alcohol Use Alcohol Use History: No Alcohol Use Frequency: Rarely - Recreational Drug Use Recreational Drug Use: No - Living Situation & Occupation Living situation: Reports: Single Occupation: Employed H&P Review of Systems - Review of Systems: Review Of Systems: See Below General: Reports: Malaise, Weakness, Fatigue. Denies: Fever, Chills, Decreased Appetite HEENT: Reports: No Symptoms. Denies: Headaches, Sinus Congestion, Sore Throat, Visual Changes Pulmonary: Reports: Cough (chronic). Denies: Shortness of Breath, Wheezing Cardiovascular: Reports: Lightheadedness, Syncope. Denies: Chest Pain, Palpitations Gastrointestinal: Reports: Abdominal Pain (intermittent LUQ), Black Stool, Melena. Denies: Bloody Stool, Nausea, Vomiting Genitourinary: Reports: No Symptoms. Denies: Dysuria, Frequency, Burning Musculoskeletal: Reports: No Symptoms Skin: Reports: No Symptoms Psychiatric: Reports: No Symptoms Neurological: Reports: No Symptoms Hematologic/Lymphatic: Reports: No Symptoms Immunologic: Reports: No Symptoms Exam - Exam Exam: See Below - Vital Signs Vital Signs: Last Vital Signs Temp 97.6 F 03/26/18 16:04 Pulse 98 03/26/18 16:04 Resp 14 03/26/18 16:04 BP 107/68 03/26/18 16:04 Pulse Ox 97 03/26/18 16:04 Weight: 74.843 kg - Exam Quality Assessment: DVT Prophylaxis General: Alert, Oriented, Cooperative, Other (pale) HEENT: Conjunctiva Clear, Mucosa Moist & [place], Posterior Pharynx Clear Neck: Supple, Trachea Midline, Full Range of Motion Lungs: Wheezing (scant wheezing noted. patient reports he feels fine. Note congested moist cough, but non productive.) Cardiovascular: Regular Rate, Regular Rhythm, Normal S1, Normal S2. No: Systolic Murmur GI/Abdominal Exam: Normal Bowel Sounds, Soft, No Distention, Tender (scant tenderness to LUQ gastric region). No: Splenomegaly Back Exam: Normal Inspection, Full Range of Motion Extremities: Normal Inspection, Normal Range of Motion, Non-Tender, No Pedal Edema Neurological: Cranial Nerves Intact Neuro Extensive - Mental Status: Alert, Oriented x3 Psychiatric: Alert, Normal Affect, Normal Mood - Patient Data Lab Results Last 24 hrs: Laboratory Results - last 24 hr 03/26/18 03/26/18 03/26/18 Range/Units 14:23 14:23 14:23 WBC 15.89 H (4.0-11.0) K/uL RBC 2.54 L (4.50-5.90) M/uL Hgb 7.7 L (13.0-17.0) g/dL Hct 23.6 L (38.0-50.0) % MCV 92.9 (80.0-98.0) fL MCH 30.3 (27.0-32.0) pg MCHC 32.6 (31.0-37.0) g/dL RDW Std Deviation 53.1 (28.0-62.0) fl RDW Coeff of Anna Marie 17 H (11.0-15.0) % Plt Count 507 H (150-400) K/uL MPV 9.00 (7.40-12.00) fL Add Manual Diff YES Neutrophils % (Manual) 62 (48.0-80.0) % Band Neutrophils % 2 % Lymphocytes % (Manual) 25 (16.0-40.0) % Monocytes % (Manual) 6 (0.0-15.0) % Eosinophils % (Manual) 5 (0.0-7.0) % Nucleated RBC % 0.6 /100WBC Absolute Seg Neuts 9.9 H (1.4-5.7) Band Neutrophils # 0.3 Lymphocytes # (Manual) 4.0 H (0.6-2.4) Monocytes # (Manual) 1.0 H (0.0-0.8) Eosinophils # (Manual) 0.8 H (0.0-0.7) Nucleated RBCs # 0 K/uL INR 0.95 Sodium 135 L (136-148) mmol/L Potassium 4.1 (3.5-5.1) mmol/L Chloride 100 (98-107) mmol/L Carbon Dioxide 28.0 (21.0-32.0) mmol/L BUN 15 (7.0-18.0) mg/dL Creatinine 1.2 (0.8-1.3) mg/dL Est Cr Clr Drug Dosing 64.97 mL/min Estimated GFR (MDRD) > 60.0 ml/min Glucose 101 (74-106) mg/dL Calcium 8.3 L (8.5-10.1) mg/dL Total Bilirubin 0.1 L (0.2-1.0) mg/dL AST 10 L (15-37) IU/L ALT 25 (14-63) IU/L Alkaline Phosphatase 57 (46-116) U/L Total Protein 6.2 L (6.4-8.2) g/dL Albumin 3.0 L (3.4-5.0) g/dL Globulin 3.2 (2.0-3.5) g/dL Albumin/Globulin Ratio 0.9 L (1.3-2.8) Amylase 95 (25-115) U/L Lipase (73-393) U/L Urine Color Urine Appearance Urine pH (5.0-8.0) Ur Specific [place] (1.001-1.035) Urine Protein (NEGATIVE) mg/dL Urine Glucose (UA) (NEGATIVE) mg/dL Urine Ketones (NEGATIVE) mg/dL Urine Occult Blood (NEGATIVE) Urine Nitrite (NEGATIVE) Urine Bilirubin (NEGATIVE) Urine Urobilinogen (<2.0) EU/dL Ur Leukocyte Esterase (NEGATIVE) Urine RBC (0-2/HPF) Urine WBC (0-5/HPF) Ur Epithelial Cells (NONE-FEW) Urine Bacteria (NEGATIVE) Ethyl Alcohol mg/dL H. pylori IgG Antibody (NEG) Blood Type Antibody Screen Crossmatch 03/26/18 03/26/18 03/26/18 Range/Units 14:23 14:23 14:23 WBC (4.0-11.0) K/uL RBC (4.50-5.90) M/uL Hgb (13.0-17.0) g/dL Hct (38.0-50.0) % MCV (80.0-98.0) fL MCH (27.0-32.0) pg MCHC (31.0-37.0) g/dL RDW Std Deviation (28.0-62.0) fl RDW Coeff of Anna Marie (11.0-15.0) % Plt Count (150-400) K/uL MPV (7.40-12.00) fL Add Manual Diff Neutrophils % (Manual) (48.0-80.0) % Band Neutrophils % % Lymphocytes % (Manual) (16.0-40.0) % Monocytes % (Manual) (0.0-15.0) % Eosinophils % (Manual) (0.0-7.0) % Nucleated RBC % /100WBC Absolute Seg Neuts (1.4-5.7) Band Neutrophils # Lymphocytes # (Manual) (0.6-2.4) Monocytes # (Manual) (0.0-0.8) Eosinophils # (Manual) (0.0-0.7) Nucleated RBCs # K/uL INR Sodium (136-148) mmol/L Potassium (3.5-5.1) mmol/L Chloride (98-107) mmol/L Carbon Dioxide (21.0-32.0) mmol/L BUN (7.0-18.0) mg/dL Creatinine (0.8-1.3) mg/dL Est Cr Clr Drug Dosing mL/min Estimated GFR (MDRD) ml/min Glucose (74-106) mg/dL Calcium (8.5-10.1) mg/dL Total Bilirubin (0.2-1.0) mg/dL AST (15-37) IU/L ALT (14-63) IU/L Alkaline Phosphatase (46-116) U/L Total Protein (6.4-8.2) g/dL Albumin (3.4-5.0) g/dL Globulin (2.0-3.5) g/dL Albumin/Globulin Ratio (1.3-2.8) Amylase (25-115) U/L Lipase 238 (73-393) U/L Urine Color Urine Appearance Urine pH (5.0-8.0) Ur Specific [place] (1.001-1.035) Urine Protein (NEGATIVE) mg/dL Urine Glucose (UA) (NEGATIVE) mg/dL Urine Ketones (NEGATIVE) mg/dL Urine Occult Blood (NEGATIVE) Urine Nitrite (NEGATIVE) Urine Bilirubin (NEGATIVE) Urine Urobilinogen (<2.0) EU/dL Ur Leukocyte Esterase (NEGATIVE) Urine RBC (0-2/HPF) Urine WBC (0-5/HPF) Ur Epithelial Cells (NONE-FEW) Urine Bacteria (NEGATIVE) Ethyl Alcohol < 3.0 mg/dL H. pylori IgG Antibody NEGATIVE (NEG) Blood Type Antibody Screen Crossmatch 03/26/18 03/26/18 Range/Units 14:35 16:10 WBC (4.0-11.0) K/uL RBC (4.50-5.90) M/uL Hgb (13.0-17.0) g/dL Hct (38.0-50.0) % MCV (80.0-98.0) fL MCH (27.0-32.0) pg MCHC (31.0-37.0) g/dL RDW Std Deviation (28.0-62.0) fl RDW Coeff of [place] (11.0-15.0) % Plt Count (150-400) K/uL MPV (7.40-12.00) fL Add Manual Diff Neutrophils % (Manual) (48.0-80.0) % Band Neutrophils % % Lymphocytes % (Manual) (16.0-40.0) % Monocytes % (Manual) (0.0-15.0) % Eosinophils % (Manual) (0.0-7.0) % Nucleated RBC % /100WBC Absolute Seg Neuts (1.4-5.7) Band Neutrophils # Lymphocytes # (Manual) (0.6-2.4) Monocytes # (Manual) (0.0-0.8) Eosinophils # (Manual) (0.0-0.7) Nucleated RBCs # K/uL INR Sodium (136-148) mmol/L Potassium (3.5-5.1) mmol/L Chloride (98-107) mmol/L Carbon Dioxide (21.0-32.0) mmol/L BUN (7.0-18.0) mg/dL Creatinine (0.8-1.3) mg/dL Est Cr Clr Drug Dosing mL/min Estimated GFR (MDRD) ml/min Glucose (74-106) mg/dL Calcium (8.5-10.1) mg/dL Total Bilirubin (0.2-1.0) mg/dL AST (15-37) IU/L ALT (14-63) IU/L Alkaline Phosphatase (46-116) U/L Total Protein (6.4-8.2) g/dL Albumin (3.4-5.0) g/dL Globulin (2.0-3.5) g/dL Albumin/Globulin Ratio (1.3-2.8) Amylase (25-115) U/L Lipase (73-393) U/L Urine Color YELLOW Urine Appearance CLEAR Urine pH 6.0 (5.0-8.0) Ur Specific [place] 1.010 (1.001-1.035) Urine Protein NEGATIVE (NEGATIVE) mg/dL Urine Glucose (UA) NEGATIVE (NEGATIVE) mg/dL Urine Ketones NEGATIVE (NEGATIVE) mg/dL Urine Occult Blood NEGATIVE (NEGATIVE) Urine Nitrite NEGATIVE (NEGATIVE) Urine Bilirubin NEGATIVE (NEGATIVE) Urine Urobilinogen 0.2 (<2.0) EU/dL Ur Leukocyte Esterase NEGATIVE (NEGATIVE) Urine RBC 0-1 (0-2/HPF) Urine WBC 0-1 (0-5/HPF) Ur Epithelial Cells RARE (NONE-FEW) Urine Bacteria RARE (NEGATIVE) Ethyl Alcohol mg/dL H. pylori IgG Antibody (NEG) Blood Type O POSITIVE Antibody Screen NEGATIVE Crossmatch See Detail Result Diagrams: 03/26/18 14:23 03/26/18 14:23 EKG INTERPRETATION Rhythm: NSR Rate (Beats/Min): 90 P-Wave: Present QRS: Normal ST-T: Normal QT: Normal *Q Meaningful Use (ADM) - VTE *Q VTE Pharmacological Contraindications *Q: Risk of Bleeding - Problem List (1) Upper GI bleed SNOMED Code(s): 23605376 ICD Code: K92.2 - GASTROINTESTINAL HEMORRHAGE, UNSPECIFIED Status: Acute Current Visit: Yes (2) Anemia SNOMED Code(s): 278761096 ICD Code: D64.9 - ANEMIA, UNSPECIFIED Status: Acute Current Visit: Yes Qualifiers: Anemia type: unspecified type Qualified Code(s): D64.9 - Anemia, unspecified (3) Syncope SNOMED Code(s): 087416561 ICD Code: R55 - SYNCOPE AND COLLAPSE Status: Acute Current Visit: Yes Qualifiers: Syncope type: unspecified Qualified Code(s): R55 - Syncope and collapse (4) PUD (peptic ulcer disease) SNOMED Code(s): 25703285 ICD Code: K27.9 - PEPTIC ULC, SITE UNSP, UNSP AC OR CHR, W/O HEMOR OR PERF Status: Chronic Current Visit: Yes (5) COPD (chronic obstructive pulmonary disease) SNOMED Code(s): 32288974 ICD Code: J44.9 - CHRONIC OBSTRUCTIVE PULMONARY DISEASE, UNSPECIFIED Status : Chronic Current Visit: Yes (6) HLD (hyperlipidemia) SNOMED Code(s): 31515251 ICD Code: E78.5 - HYPERLIPIDEMIA, UNSPECIFIED Status: Chronic Current Visit: Yes (7) HTN (hypertension) SNOMED Code(s): 30169420 ICD Code: I10 - ESSENTIAL (PRIMARY) HYPERTENSION Status: Chronic Current Visit: Yes Qualifiers: Hypertension type: essential hypertension Qualified Code(s): I10 - Essential (primary) hypertension Problem List Initiated/Reviewed/Updated: Yes Orders Last 24hrs: Active Orders 24 hr Category Date Time Status Patient Status [ADT] Stat ADT 03/26/18 16:34 Active Cardiac Monitoring [RC] . DIRECTED Care 03/26/18 14:27 Active EKG Documentation Completion [RC] STAT Care 03/26/18 14:27 Active Notify Provider Consults [RC] ASDIRECTED Care 03/26/18 17:10 Ordered Oxygen Therapy, ED [RC] ASDIRECTED Care 03/26/18 14:27 Active Pulse Oximetry [RC] ASDIRECTED Care 03/26/18 14:27 Active Consult to Physician [CONS] Stat Cons 03/26/18 17:10 Ordered RED BLOOD CELLS LP [BBK] Stat Lab 03/26/18 14:35 Results TYPE AND SCREEN [BBK] Stat Lab 03/26/18 14:35 Results UA W/MICROSCOPIC [URIN] Stat Lab 03/26/18 16:10 Ordered Pantoprazole [ProTONIX IV] 80 mg Med 03/26/18 16:45 Active Sodium Chloride 0.9% [Normal Saline] 100 ml IV .Continuous Sodium Chloride 0.9% [Normal Saline] 1,000 ml Med 03/26/18 16:15 Active IV ASDIRECTED Sodium Chloride 0.9% [Saline Flush] Med 03/26/18 14:28 Active 10 ml FLUSH ASDIRECTED PRN Sodium Chloride 0.9% [Saline Flush] Med 03/26/18 14:28 Active 2.5 ml FLUSH ASDIRECTED PRN Saline Lock Insert [OM.PC] Stat Ot 03/26/18 14:27 Ordered Transfuse RBC [Transfuse Red Blood Cells] [COMM] Stat Ot 03/26/18 17:08 Ordered Medication Orders Sodium Chloride (Normal Saline) 1,000 mls @ 125 mls/hr IV ASDIRECTED SHEELA Pantoprazole Sodium 80 mg/ (Sodium Chloride) 100 mls @ 10 mls/hr IV .Continuous SHEELA Sodium Chloride (Saline Flush) 10 ml FLUSH ASDIRECTED PRN PRN Reason: Keep Vein Open Sodium Chloride (Saline Flush) 2.5 ml FLUSH ASDIRECTED PRN PRN Reason: Keep Vein Open Assessment/Plan Comment:: This 67 year old male admited with Upper GI bleed with hx of PUD. 1. Upper GI bleed: Consulted Dr Parry, he will kindly see patient this evening. Recommended transfuse and monitor hgb. Protonix 40 mg IV Q12h as well as Carafate. CL diet for now. Continue Protonix gtt started in ED. Carafate with each meal and at bedtime. Will transfuse 2 units PRBCs and recheck hgb. Goal of hgb to be above 10. 2 further units on standby as needed. Encouraged him to stop Meloxicam, which was noted to be on med list once clinic chart review by me. 2. HTN: Due to hypotension with above, will hold antihypertensives and monitor. 3. COPD: Stable. Will continue Advair, order PRN Duonebs. VTE prophylaxis: SCDs only. Dispo: 1-3 days pending improvement.
[2018-03-26] MEDS ORDERED: Albuterol/Ipratropium 3.0-0.5 MG/3 ML Neb Soln NEB PRN (17:30)
[2018-03-26] MEDS ORDERED: Acetaminophen 325 MG Tab PO PRN (17:30)
[2018-03-26] MEDS ORDERED: Ondansetron 4 MG/2 ML SDV IVPUSH PRN (17:30)
[2018-03-26] MEDS ORDERED: traZODone 50 MG Tab PO PRN (17:33)
[2018-03-26] MEDS: Sucralfate Suspension 1 GM/10 ML Cup PO SCH ×2 (18:06→21:25)
--- NOTE | 2018-03-26 19:42 | PCM.CONS ---
H&P History of Present Illness - General Date of Service: 03/26/18 Admit Problem/Dx: Admission Diagnosis/Problem Admission Diagnosis/Problem Syncope/ Upper GI bleed Source of Information: Patient History Limitations: Reports: No Limitations - History of Present Illness Onset of Symptoms: Reports: Gradual Duration of Symptoms: Reports: Day(s): Location: Reports: Abdomen Quality: Reports: Burning, Same as Previous Episode Severity: Severe Improves with: Reports: Rest Worsens with: Reports: None Context: Reports: Sick Contact Associated Symptoms: Reports: Weakness. Denies: Confusion, Chest Pain, Cough, Nausea/Vomiting Left Upper Abdomen Pain Score (Numeric/FACES): 2 - Related Data Allergies/Adverse Reactions: Allergies Allergy/AdvReac Type Severity Reaction Status Date / Time No Known Allergies Allergy Verified 03/26/18 14:26 Home Medications: Home Meds Fluticasone Furoate [Flonase Sensimist] 1 spray NASBOTH DAILY 07/08/17 [History] Fluticasone/Salmeterol [Advair 250-50 Diskus] 1 puff INH BID 07/08/17 [History] Gabapentin [Neurontin] 300 mg PO TID 07/08/17 [History] Meloxicam 15 mg PO DAILY PRN 07/08/17 [History] Omeprazole Magnesium [Prilosec] 10 mg PO BID #60 suspdr.pkt 07/08/17 [Rx] Sildenafil Citrate [Sildenafil] 5 tab PO ASDIRECTED PRN 07/08/17 [History] amLODIPine [Norvasc] 10 mg PO DAILY 07/08/17 [History] atorvaSTATin [Lipitor] 10 mg PO ASDIRECTED 07/08/17 [History] traZODone HCl [Trazodone HCl] 100 mg PO BEDTIME 07/08/17 [History] Gabapentin [Neurontin] 300 mg PO BID 03/26/18 [History] Irbesartan 150 mg PO DAILY 03/26/18 [History] Pantoprazole Sodium [Protonix] 40 mg PO BID #60 tablet.dr 03/26/18 [Rx] Sucralfate [Carafate] 1 gm PO QIDACANDBED #120 tablet 03/26/18 [Rx] Past Medical History HEENT History: Reports: Other (See Below) Other HEENT History: wears reading glasses Cardiovascular History: Reports: High Cholesterol, Hypertension. Denies: CAD, NE Respiratory History: Reports: COPD, SOB Gastrointestinal History: Reports: GERD, PUD Genitourinary History: Reports: None Musculoskeletal History: Reports: Back Pain, Chronic, Fracture Other Musculoskeletal History: hx fx ribs Neurological History: Reports: None. Denies: CVA, Migraines, TIA Psychiatric History: Reports: Anxiety Endocrine/Metabolic History: Reports: Other (See Below) (borderline diabetic ( prediabetes)) Oncologic (Cancer) History: Reports: Other (See Below) Other Oncologic History: melanoma Dermatologic History: Reports: Melanoma Other Dermatologic History: states melanoma to arms - Infectious Disease History Infectious Disease History: Reports: Chicken Pox, Measles, Mumps - Past Surgical History Head Surgeries/Procedures: Reports: None HEENT Surgical History: Reports: Other (See Below) Other HEENT Surgeries/Procedures: hx exc of jaw cyst, multiple teeth extraction GI Surgical History: Reports: Colonoscopy (in 80's), EGD Musculoskeletal Surgical History: Reports: Shoulder Surgery (left shoulder surgery) Other Surgical History Comment: exc. of benign soft tissue tumor from left side of his neck Social & Family History - Family History Family Medical History: Noncontributory Cardiac: Reports: Bypass - Tobacco Use Smoking Status *Q: Current Every Day Smoker Years of Tobacco use: 50 Packs/Tins Daily: 0.5 Used Tobacco, but Quit: No Second Hand Smoke Exposure: No - Caffeine Use Caffeine Use: Reports: Soda - Recreational Drug Use Recreational Drug Use: No Drug Use in Last 12 Months: Yes Recreational Drug Type: Reports: Marijuana/Hashish Recreational Drug Use Frequency: Daily - Living Situation & Occupation Living situation: Reports: Single Occupation: Employed H&P Review of Systems - Review of Systems: Review Of Systems: See Below General: Reports: Weakness, Fatigue. Denies: Fever, Chills, Weight Loss HEENT: Reports: No Symptoms Pulmonary: Reports: Wheezing (COPD). Denies: Cough, Sputum Cardiovascular: Reports: Lightheadedness, Syncope. Denies: Chest Pain, Palpitations Gastrointestinal: Reports: Abdominal Pain, Black Stool, Bloody Stool (BURGUNDY) , Constipation, Decreased Appetite, Flatus. Denies: Diarrhea, Distension, Nausea, Vomiting Genitourinary: Denies: Dysuria, Frequency, Burning Musculoskeletal: Reports: No Symptoms Skin: Reports: No Symptoms Psychiatric: Reports: No Symptoms Neurological: Reports: No Symptoms Hematologic/Lymphatic: Reports: Anemia. Denies: Easy Bleeding, Easy Bruising Immunologic: Reports: No Symptoms Exam - Exam Exam: See Below - Vital Signs Vital Signs: Last Vital Signs Temp 98.6 F 03/26/18 18:45 Pulse 88 03/26/18 18:45 Resp 16 03/26/18 18:45 BP 102/39 L 03/26/18 18:45 Pulse Ox 95 03/26/18 18:45 Weight: 165 lb - Exam Quality Assessment: Supplemental Oxygen General: Alert, Oriented, Cooperative, Mild Distress HEENT: Conjunctiva Clear, EACs Clear. No: Scleral Icterus Neck: Supple, Trachea Midline. No: Carotid Bruit Lungs: Clear to Auscultation, Wheezing Cardiovascular: Regular Rate, Regular Rhythm, Normal S1, Normal S2. No: Tachycardia, Systolic Murmur, Diastolic Murmur GI/Abdominal Exam: Normal Bowel Sounds, Soft, Non-Tender, No Organomegaly, No Distention, No Mass (Male) Exam: No Hernia, Normal Inspection Rectal (Males) Exam: Deferred Back Exam: Normal Inspection, Full Range of Motion Extremities: Normal Inspection, Normal Range of Motion Peripheral Pulses: 3+: Posterior Tibial (L), Posterior Tibial (R), Dorsalis Pedis (L), Dorsalis Pedis (R) Skin: Warm, Dry, Intact Neurological: Cranial Nerves Intact Neuro Extensive - Mental Status: Alert, Oriented x3, Normal Mood/Affect, Normal Cognition Psychiatric: Alert, Normal Affect, Normal Mood. No: Anxious, Depressed - Patient Data Lab Results Last 24 hrs: Laboratory Results - last 24 hr 03/26/18 03/26/18 03/26/18 Range/Units 14:23 14:23 14:23 WBC 15.89 H (4.0-11.0) K/uL RBC 2.54 L (4.50-5.90) M/uL Hgb 7.7 L (13.0-17.0) g/dL Hct 23.6 L (38.0-50.0) % MCV 92.9 (80.0-98.0) fL MCH 30.3 (27.0-32.0) pg MCHC 32.6 (31.0-37.0) g/dL RDW Std Deviation 53.1 (28.0-62.0) fl RDW Coeff of Anna Marie 17 H (11.0-15.0) % Plt Count 507 H (150-400) K/uL MPV 9.00 (7.40-12.00) fL Add Manual Diff YES Neutrophils % (Manual) 62 (48.0-80.0) % Band Neutrophils % 2 % Lymphocytes % (Manual) 25 (16.0-40.0) % Monocytes % (Manual) 6 (0.0-15.0) % Eosinophils % (Manual) 5 (0.0-7.0) % Nucleated RBC % 0.6 /100WBC Absolute Seg Neuts 9.9 H (1.4-5.7) Band Neutrophils # 0.3 Lymphocytes # (Manual) 4.0 H (0.6-2.4) Monocytes # (Manual) 1.0 H (0.0-0.8) Eosinophils # (Manual) 0.8 H (0.0-0.7) Nucleated RBCs # 0 K/uL INR 0.95 Sodium 135 L (136-148) mmol/L Potassium 4.1 (3.5-5.1) mmol/L Chloride 100 (98-107) mmol/L Carbon Dioxide 28.0 (21.0-32.0) mmol/L BUN 15 (7.0-18.0) mg/dL Creatinine 1.2 (0.8-1.3) mg/dL Est Cr Clr Drug Dosing 64.97 mL/min Estimated GFR (MDRD) > 60.0 ml/min Glucose 101 (74-106) mg/dL Calcium 8.3 L (8.5-10.1) mg/dL Total Bilirubin 0.1 L (0.2-1.0) mg/dL AST 10 L (15-37) IU/L ALT 25 (14-63) IU/L Alkaline Phosphatase 57 (46-116) U/L Total Protein 6.2 L (6.4-8.2) g/dL Albumin 3.0 L (3.4-5.0) g/dL Globulin 3.2 (2.0-3.5) g/dL Albumin/Globulin Ratio 0.9 L (1.3-2.8) Amylase 95 (25-115) U/L Lipase (73-393) U/L Urine Color Urine Appearance Urine pH (5.0-8.0) Ur Specific [place] (1.001-1.035) Urine Protein (NEGATIVE) mg/dL Urine Glucose (UA) (NEGATIVE) mg/dL Urine Ketones (NEGATIVE) mg/dL Urine Occult Blood (NEGATIVE) Urine Nitrite (NEGATIVE) Urine Bilirubin (NEGATIVE) Urine Urobilinogen (<2.0) EU/dL Ur Leukocyte Esterase (NEGATIVE) Urine RBC (0-2/HPF) Urine WBC (0-5/HPF) Ur Epithelial Cells (NONE-FEW) Urine Bacteria (NEGATIVE) Ethyl Alcohol mg/dL H. pylori IgG Antibody (NEG) Blood Type Antibody Screen Crossmatch 03/26/18 03/26/18 03/26/18 Range/Units 14:23 14:23 14:23 WBC (4.0-11.0) K/uL RBC (4.50-5.90) M/uL Hgb (13.0-17.0) g/dL Hct (38.0-50.0) % MCV (80.0-98.0) fL MCH (27.0-32.0) pg MCHC (31.0-37.0) g/dL RDW Std Deviation (28.0-62.0) fl RDW Coeff of Anna Marie (11.0-15.0) % Plt Count (150-400) K/uL MPV (7.40-12.00) fL Add Manual Diff Neutrophils % (Manual) (48.0-80.0) % Band Neutrophils % % Lymphocytes % (Manual) (16.0-40.0) % Monocytes % (Manual) (0.0-15.0) % Eosinophils % (Manual) (0.0-7.0) % Nucleated RBC % /100WBC Absolute Seg Neuts (1.4-5.7) Band Neutrophils # Lymphocytes # (Manual) (0.6-2.4) Monocytes # (Manual) (0.0-0.8) Eosinophils # (Manual) (0.0-0.7) Nucleated RBCs # K/uL INR Sodium (136-148) mmol/L Potassium (3.5-5.1) mmol/L Chloride (98-107) mmol/L Carbon Dioxide (21.0-32.0) mmol/L BUN (7.0-18.0) mg/dL Creatinine (0.8-1.3) mg/dL Est Cr Clr Drug Dosing mL/min Estimated GFR (MDRD) ml/min Glucose (74-106) mg/dL Calcium (8.5-10.1) mg/dL Total Bilirubin (0.2-1.0) mg/dL AST (15-37) IU/L ALT (14-63) IU/L Alkaline Phosphatase (46-116) U/L Total Protein (6.4-8.2) g/dL Albumin (3.4-5.0) g/dL Globulin (2.0-3.5) g/dL Albumin/Globulin Ratio (1.3-2.8) Amylase (25-115) U/L Lipase 238 (73-393) U/L Urine Color Urine Appearance Urine pH (5.0-8.0) Ur Specific [place] (1.001-1.035) Urine Protein (NEGATIVE) mg/dL Urine Glucose (UA) (NEGATIVE) mg/dL Urine Ketones (NEGATIVE) mg/dL Urine Occult Blood (NEGATIVE) Urine Nitrite (NEGATIVE) Urine Bilirubin (NEGATIVE) Urine Urobilinogen (<2.0) EU/dL Ur Leukocyte Esterase (NEGATIVE) Urine RBC (0-2/HPF) Urine WBC (0-5/HPF) Ur Epithelial Cells (NONE-FEW) Urine Bacteria (NEGATIVE) Ethyl Alcohol < 3.0 mg/dL H. pylori IgG Antibody NEGATIVE (NEG) Blood Type Antibody Screen Crossmatch 03/26/18 03/26/18 Range/Units 14:35 16:10 WBC (4.0-11.0) K/uL RBC (4.50-5.90) M/uL Hgb (13.0-17.0) g/dL Hct (38.0-50.0) % MCV (80.0-98.0) fL MCH (27.0-32.0) pg MCHC (31.0-37.0) g/dL RDW Std Deviation (28.0-62.0) fl RDW Coeff of Anna Marie (11.0-15.0) % Plt Count (150-400) K/uL MPV (7.40-12.00) fL Add Manual Diff Neutrophils % (Manual) (48.0-80.0) % Band Neutrophils % % Lymphocytes % (Manual) (16.0-40.0) % Monocytes % (Manual) (0.0-15.0) % Eosinophils % (Manual) (0.0-7.0) % Nucleated RBC % /100WBC Absolute Seg Neuts (1.4-5.7) Band Neutrophils # Lymphocytes # (Manual) (0.6-2.4) Monocytes # (Manual) (0.0-0.8) Eosinophils # (Manual) (0.0-0.7) Nucleated RBCs # K/uL INR Sodium (136-148) mmol/L Potassium (3.5-5.1) mmol/L Chloride (98-107) mmol/L Carbon Dioxide (21.0-32.0) mmol/L BUN (7.0-18.0) mg/dL Creatinine (0.8-1.3) mg/dL Est Cr Clr Drug Dosing mL/min Estimated GFR (MDRD) ml/min Glucose (74-106) mg/dL Calcium (8.5-10.1) mg/dL Total Bilirubin (0.2-1.0) mg/dL AST (15-37) IU/L ALT (14-63) IU/L Alkaline Phosphatase (46-116) U/L Total Protein (6.4-8.2) g/dL Albumin (3.4-5.0) g/dL Globulin (2.0-3.5) g/dL Albumin/Globulin Ratio (1.3-2.8) Amylase (25-115) U/L Lipase (73-393) U/L Urine Color YELLOW Urine Appearance CLEAR Urine pH 6.0 (5.0-8.0) Ur Specific [place] 1.010 (1.001-1.035) Urine Protein NEGATIVE (NEGATIVE) mg/dL Urine Glucose (UA) NEGATIVE (NEGATIVE) mg/dL Urine Ketones NEGATIVE (NEGATIVE) mg/dL Urine Occult Blood NEGATIVE (NEGATIVE) Urine Nitrite NEGATIVE (NEGATIVE) Urine Bilirubin NEGATIVE (NEGATIVE) Urine Urobilinogen 0.2 (<2.0) EU/dL Ur Leukocyte Esterase NEGATIVE (NEGATIVE) Urine RBC 0-1 (0-2/HPF) Urine WBC 0-1 (0-5/HPF) Ur Epithelial Cells RARE (NONE-FEW) Urine Bacteria RARE (NEGATIVE) Ethyl Alcohol mg/dL H. pylori IgG Antibody (NEG) Blood Type O POSITIVE Antibody Screen NEGATIVE Crossmatch See Detail Result Diagrams: 03/26/18 14:23 03/26/18 14:23 Consult PN Assessment/Plan Procedures: Procedures ALANINE AMINO (ALT) (SGPT) (03/27/15) ASSAY OF CREATININE (06/16/15) ASSAY OF LACTIC ACID (07/08/17) ASSAY OF LIPASE (07/08/17) ASSAY OF UREA NITROGEN (06/16/15) ASSAY OF VITAMIN B-1 (08/22/16) ASSAY OF VITAMIN E (08/22/16) BLOOD TYPING SEROLOGIC ABO (07/08/17) BLOOD TYPING SEROLOGIC RH(D) (07/08/17) CHEST X-RAY 1 VIEW FRONTAL (07/08/17) CHEST X-RAY 2VW FRONTAL&LATL (08/21/15) COLONOSCOPY AND BIOPSY (08/14/17) COMPLETE CBC AUTOMATED (04/27/14) COMPLETE CBC W/AUTO DIFF WBC (07/08/17) COMPREHEN METABOLIC PANEL (02/25/18) CT ABD & PELV W/CONTRAST (07/08/17) CT SOFT TISSUE NECK W/DYE (06/19/15) CULTURE OTHR SPECIMN AEROBIC (11/07/15) ECHO GUIDE FOR BIOPSY (06/20/15) EGD BIOPSY SINGLE/MULTIPLE (08/14/17) ELECTROCARDIOGRAM TRACING (08/21/15) EMERGENCY DEPT VISIT (07/08/17) EVALUATION OF WHEEZING (06/07/15) FNA W/IMAGE (06/20/15) GLYCOSYLATED HEMOGLOBIN TEST (02/25/18) HYDRATE IV INFUSION ADD-ON (07/08/17) LIPID PANEL (02/25/18) METABOLIC PANEL TOTAL CA (08/21/15) OFFICE/OUTPATIENT VISIT EST (02/25/18) PCV13 VACCINE IM (02/25/18) PROTEIN E-PHORESIS SERUM (08/22/16) RBC ANTIBODY SCREEN (07/08/17) ROUTINE VENIPUNCTURE (02/25/18) THER/PROPH/DIAG INJ IV PUSH (07/08/17) TRANSFERASE (AST) (SGOT) (03/27/15) TX/PRO/DX INJ NEW DRUG ADDON (07/08/17) URINALYSIS AUTO W/SCOPE (12/25/16) URINE CULTURE/COLONY COUNT (12/25/16) VITAMIN B-12 (08/22/16) X-RAY EXAM OF FOOT (11/13/16) X-RAY EXAM THORAC SPINE 2VWS (09/22/17) (1) Anemia SNOMED Code(s): 442284260 Code(s): D64.9 - ANEMIA, UNSPECIFIED Priority: High Current Visit: Yes Qualifiers: Iron deficiency anemia type: chronic blood loss Qualified Code(s): D64.9 - Anemia, unspecified (2) Syncope SNOMED Code(s): 555331680 Code(s): R55 - SYNCOPE AND COLLAPSE Priority: Medium Current Visit: Yes Qualifiers: Syncope type: unspecified Qualified Code(s): R55 - Syncope and collapse (3) Upper GI bleed SNOMED Code(s): 01023177 Code(s): K92.2 - GASTROINTESTINAL HEMORRHAGE, UNSPECIFIED Priority: High Current Visit: Yes (4) COPD (chronic obstructive pulmonary disease) SNOMED Code(s): 21418661 Code(s): J44.9 - CHRONIC OBSTRUCTIVE PULMONARY DISEASE, UNSPECIFIED Priority: Medium Current Visit: Yes Qualifiers: COPD type: emphysema (5) HTN (hypertension) SNOMED Code(s): 63558786 Code(s): I10 - ESSENTIAL (PRIMARY) HYPERTENSION Priority: Medium Current Visit: Yes Qualifiers: Hypertension type: essential hypertension Qualified Code(s): I10 - Essential (primary) hypertension (6) PUD (peptic ulcer disease) SNOMED Code(s): 11244201 Code(s): K27.9 - PEPTIC ULC, SITE UNSP, UNSP AC OR CHR, W/O HEMOR OR PERF Priority: High Current Visit: Yes (7) Duodenitis SNOMED Code(s): 86579443 Code(s): K29.80 - DUODENITIS WITHOUT BLEEDING Priority: High Current Visit: No Problem List Initiated/Reviewed/Updated: Yes Plan: I did recommend he proceed with EGD. He states he had one by Dr. Garces in July and was told he had a stomach ulcer. He does not wish to proceed with endoscopy at this time. He thinks he is going home tomorrow. If so, recommend Nexium and Carafate for discharge. Follow up with PCP, Tiffani Cortez next week. Recheck H/H next week. I would be happy to see him for endoscopy if he so desires. As he has seen Dr. Garces he could also follow up with him. Thank you.
[2018-03-26] MEDS ORDERED: atorvaSTATin 10 MG Tab PO SCH (21:00)
[2018-03-26] MEDS ORDERED: Fluticasone/Salmeterol 250-50 MCG Inhalation Powder 14/Diskus INH SCH (21:00)
[2018-03-26] MEDS: Gabapentin 300 MG Cap PO SCH (21:25)
[2018-03-26] MEDS: Nicotine 14 MG/24 Hr Patch TRDERM SCH (21:26)
[2018-03-27] MEDS ORDERED: Fluticasone/Salmeterol 250-50 MCG Inhalation Powder 14/Diskus INH SCH
[2018-03-27] MEDS ORDERED: Pantoprazole 40 MG Vial IV SCH (02:00)
[2018-03-27 06:13] LABS: CHLORIDE,CL 104 mmol/L (98-107); SODIUM,NA 136 mmol/L (136-148)
[2018-03-27] MEDS: Gabapentin 300 MG Cap PO SCH (07:00)
[2018-03-27] MEDS: Sucralfate Suspension 1 GM/10 ML Cup PO SCH (07:00)
[2018-03-27] MEDS ORDERED: Nicotine 14 MG/24 Hr Patch TRDERM SCH (09:00)
[2018-03-27] MEDS ORDERED: Fluticasone Propionate Nasal Spray 16 GM Bottle NASBOTH SCH (09:00)
[2018-03-27] MEDS: Nicotine 14 MG/24 Hr Patch TRDERM SCH (09:04)
--- NOTE | 2018-03-27 10:26 | PCM.DCSUM1 ---
Discharge Summary - Hospital Course Brief History: This 67 year old male with pmh of COPD, tobacco abuse, and PUD presented to the ED today with complaints of syncope 3 days ago. he wsa attempting to get an appointment with his PCP, but they recommended he be evaluated in the ED. He reports he has a ulcer attack 2-3 weeks ago followed by some constipation in which he took a laxative and subsequently had a very large black stool follow by liquid. Denies arminda blood per stools. Had a stool today that was streaked with black, but appeared "fairly normal." He reports feeling pretty lousy, fatigued and lightheaded if he moves too fast. NO chest pain or palpitations and no shortness of breath. Reports chronic cough, congested, not really productive. No fevers or chills at home. Scant LUQ pain. Denies heavy alcohol use, has not drank in 3-4 months. No NSAID use. Drinks pop, no coffee. Does like spicier foods. He thought his syncope was secondary to being hot and outside working. The patient says that 3 days ago he was out in the heat he got lightheaded and the next thing he remembers was being on the gound but was only unconscious briefly. He denies hitting his head, no headache or neck pain. Reports eating and drinking normally. He is currently in the process of quitting smoking, down to 1/2 ppd from 1 1/2 ppd for 50+ years. No recreational drug use. In July he had EGD and colonoscopy with Dr Garces, which revealed PUD. He was treated with Prilosec, which he reports taking for approximately 3- 4 months then stopped and has been good up until 2-3 weeks ago. In the ED leukocytosis noted at 15,890 hgb 7.7 HCT 23.6, Platelets 507. Na 135, BUN 15, Cr 1.2. H pylori negative. CXR engative. BPs noted to be 90-100/60s HR 90-100s. No hypoxia noted. He was treated with IVFs and Protonix bolus 80 mg. PCP, Tiffani Cortez NP. Upon review of clinic chart, he is on Meloxicam for arthritic pain. Diagnosis: Stroke: No - Discharge Data Discharge Date: 03/27/18 Discharge Disposition: Home, Self-Care 01 Condition: Good - Discharge Diagnosis/Problem(s) (1) Upper GI bleed SNOMED Code(s): 62361438 ICD Code: K92.2 - GASTROINTESTINAL HEMORRHAGE, UNSPECIFIED Status: Acute Priority: High Current Visit: Yes (2) Anemia SNOMED Code(s): 322842830 ICD Code: D64.9 - ANEMIA, UNSPECIFIED Status: Acute Priority: High Current Visit: Yes Qualifiers: Iron deficiency anemia type: chronic blood loss (3) Syncope SNOMED Code(s): 735877554 ICD Code: R55 - SYNCOPE AND COLLAPSE Status: Acute Priority: Medium Current Visit: Yes Qualifiers: Syncope type: unspecified Qualified Code(s): R55 - Syncope and collapse (4) PUD (peptic ulcer disease) SNOMED Code(s): 11807132 ICD Code: K27.9 - PEPTIC ULC, SITE UNSP, UNSP AC OR CHR, W/O HEMOR OR PERF Status: Chronic Priority: High Current Visit: Yes (5) COPD (chronic obstructive pulmonary disease) SNOMED Code(s): 55402811 ICD Code: J44.9 - CHRONIC OBSTRUCTIVE PULMONARY DISEASE, UNSPECIFIED Status : Chronic Priority: Medium Current Visit: Yes Qualifiers: COPD type: emphysema (6) HLD (hyperlipidemia) SNOMED Code(s): 60654709 ICD Code: E78.5 - HYPERLIPIDEMIA, UNSPECIFIED Status: Chronic Current Visit: Yes (7) HTN (hypertension) SNOMED Code(s): 41723248 ICD Code: I10 - ESSENTIAL (PRIMARY) HYPERTENSION Status: Chronic Priority : Medium Current Visit: Yes Qualifiers: Hypertension type: essential hypertension Qualified Code(s): I10 - Essential (primary) hypertension - Patient Summary/Data Consults: Consultations 03/26/18 17:10 Consult to Physician [CONS] Stat - Patient Instructions Diet: Heart Healthy Diet Activity: As Tolerated, No Strenuous Activities Showering/Bathing: May Shower Notify Provider of: Fever, Increased Pain, Nausea and/or Vomiting - Discharge Plan *PRESCRIPTION DRUG MONITORING PROGRAM REVIEWED*: Not Applicable *COPY OF PRESCRIPTION DRUG MONITORING REPORT IN PATIENT JACK: Not Applicable Prescriptions/Med Rec: Ferrous Sulfate 325 mg PO TIDMEALS 90 Days #270 tab Pantoprazole Sodium [Protonix] 40 mg PO BID #60 tablet. Sucralfate [Carafate] 1 gm PO QIDACANDBED #120 tablet Home Medications: Home Meds Fluticasone Furoate [Flonase Sensimist] 1 spray NASBOTH DAILY 07/08/17 [History] Fluticasone/Salmeterol [Advair 250-50 Diskus] 1 puff INH BID 07/08/17 [History] Gabapentin [Neurontin] 300 mg PO TID 07/08/17 [History] Sildenafil Citrate [Sildenafil] 5 tab PO ASDIRECTED PRN 07/08/17 [History] amLODIPine [Norvasc] 10 mg PO DAILY 07/08/17 [History] atorvaSTATin [Lipitor] 10 mg PO ASDIRECTED 07/08/17 [History] traZODone HCl [Trazodone HCl] 100 mg PO BEDTIME 07/08/17 [History] Irbesartan 150 mg PO DAILY 03/26/18 [History] Irbesartan [Avapro] 150 mg PO DAILY 03/26/18 [History] Pantoprazole Sodium [Protonix] 40 mg PO BID #60 tablet. 03/26/18 [Rx] Sucralfate [Carafate] 1 gm PO QIDACANDBED #120 tablet 03/26/18 [Rx] traMADol HCl [Tramadol HCl] 50 tab PO TID PRN 03/26/18 [History] Ferrous Sulfate 325 mg PO TIDMEALS 90 Days #270 tab 03/27/18 [Rx] Patient Handouts: Anemia, Iron tablets, capsules, extended-release tablets, Sucralfate tablets, Gastrointestinal Bleeding, [id number], Pantoprazole tablets, Syncope, [id number] Referrals: Dickson Garces MD [Physician] - 04/20/18 10:30 am Tiffani Cortez NP [Primary Care Provider] - 04/03/18 10:00 am - Discharge Summary/Plan Comment DC Time >30 min.: No Discharge Summary/Plan Comment: Discharge Diagnoses; Upper GI bleeding Symptomatic anemia- asymptomatic now HTN Anxiety COPD Tobacco abuse- quitting Louie was admitted and treated for upper GI bleeding secondary to hx of PUD and use of NSAIDs. He was kept on CL diet overnight. No nausea or vomiting, no further black stools. He was transfused with 2 units PRBCs, hgb elevated to 9.7 and remained stable at 9.[address] Parry, general surgery was consulted, he was recommending EGD but patient declined this since he just had one, "I know what is going on". This morning he is feeling better, wanting to advance diet. He also is very set on going home. He reports he has no further pain, no black or bloody BMs and he is tolerating diet well. He was encouraged to stay, so we can insure he is no longer bleeding, but he declines this and is requesting discharge. He was encouraged to STOP all NSAIDs, including Meloxicam , and to not use them again due to history now of PUD with bleeding ulcer. He is to continue Protonix 40 mg BID and Carafate QIDACandHS for 1 month. He will also be given Iron TID to help with anemia, Dr Parry recommended for 90 days. He is to follow up with Tiffani Cortez NP in 1 week with repeat HH and we will also arrange follow up with Dr Garces in 2-3 weeks as well. He is to return to the ED if symptoms return, such as syncope, chest pain, shortness of breath or black/blood stools, fatigue or weakness. He verbalized understanding. - General Info Date of Service: 03/27/18 Admission Dx/Problem (Free Text: Admission Diagnosis/Problem Admission Diagnosis/Problem Syncope/ Upper GI bleed Subjective Update: Sitting up in bed, eager for discharge home. No chest pain, SOB or abdominal pain. requesting discharge home now and to advance diet. No further black stools overnight. Functional Status: Reports: Pain Controlled, Tolerating Diet, Ambulating, Urinating - Review of Systems General: Reports: Weakness (generalized, "I haven't eaten anything substanial in many days, I need moer than liquids."). Denies: Fever, Fatigue, Malaise Pulmonary: Reports: No Symptoms. Denies: Shortness of Breath Cardiovascular: Reports: No Symptoms. Denies: Chest Pain Gastrointestinal: Reports: No Symptoms, Flatus. Denies: Abdominal Pain, Melena , Nausea, Vomiting Genitourinary: Reports: No Symptoms. Denies: Dysuria, Frequency, Burning Neurological: Reports: No Symptoms Psychiatric: Reports: No Symptoms - Patient Data Vitals - Most Recent: Last Vital Signs Temp 97.5 F 03/27/18 08:00 Pulse 83 07/13/18 08:00 Resp 18 03/27/18 08:00 BP 136/70 03/27/18 08:00 Pulse Ox 94 L 03/27/18 08:00 Orthostatic Blood Pressure [ 133/81 Standing] Orthostatic Blood Pressure [ 152/69 Sitting] Orthostatic Blood Pressure [ 148/79 Supine] Weight - Most Recent: 74.843 kg I&O - Last 24 hours: Intake & Output 03/26/18 03/27/18 03/27/18 22:59 06:59 14:59 Intake Total 362 638 Output Total 800 Balance 362 -162 Lab Results - Last 24 hrs: Laboratory Results - last 24 hr 03/26/18 03/26/18 03/26/18 Range/Units 14:23 14:23 14:23 WBC 15.89 H (4.0-11.0) K/uL RBC 2.54 L (4.50-5.90) M/uL Hgb 7.7 L (13.0-17.0) g/dL Hct 23.6 L (38.0-50.0) % MCV 92.9 (80.0-98.0) fL MCH 30.3 (27.0-32.0) pg MCHC 32.6 (31.0-37.0) g/dL RDW Std Deviation 53.1 (28.0-62.0) fl RDW Coeff of Anna Marie 17 H (11.0-15.0) % Plt Count 507 H (150-400) K/uL MPV 9.00 (7.40-12.00) fL Neut % (Auto) (48.0-80.0) % Lymph % (Auto) (16.0-40.0) % [place] % (Auto) (0.0-15.0) % Eos % (Auto) (0.0-7.0) % Baso % (Auto) (0.0-1.5) % Neut # (Auto) (1.4-5.7) K/uL Lymph # (Auto) (0.6-2.4) K/uL [place] # (Auto) (0.0-0.8) K/uL Eos # (Auto) (0.0-0.7) K/uL Baso # (Auto) (0.0-0.1) K/uL Add Manual Diff YES Neutrophils % (Manual) 62 (48.0-80.0) % Band Neutrophils % 2 % Lymphocytes % (Manual) 25 (16.0-40.0) % Monocytes % (Manual) 6 (0.0-15.0) % Eosinophils % (Manual) 5 (0.0-7.0) % Nucleated RBC % 0.6 /100WBC Absolute Seg Neuts 9.9 H (1.4-5.7) Band Neutrophils # 0.3 Lymphocytes # (Manual) 4.0 H (0.6-2.4) Monocytes # (Manual) 1.0 H (0.0-0.8) Eosinophils # (Manual) 0.8 H (0.0-0.7) Nucleated RBCs # 0 K/uL INR 0.95 Sodium 135 L (136-148) mmol/L Potassium 4.1 (3.5-5.1) mmol/L Chloride 100 (98-107) mmol/L Carbon Dioxide 28.0 (21.0-32.0) mmol/L BUN 15 (7.0-18.0) mg/dL Creatinine 1.2 (0.8-1.3) mg/dL Est Cr Clr Drug Dosing 64.97 mL/min Estimated GFR (MDRD) > 60.0 ml/min Glucose 101 (74-106) mg/dL Calcium 8.3 L (8.5-10.1) mg/dL Total Bilirubin 0.1 L (0.2-1.0) mg/dL AST 10 L (15-37) IU/L ALT 25 (14-63) IU/L Alkaline Phosphatase 57 (46-116) U/L Total Protein 6.2 L (6.4-8.2) g/dL Albumin 3.0 L (3.4-5.0) g/dL Globulin 3.2 (2.0-3.5) g/dL Albumin/Globulin Ratio 0.9 L (1.3-2.8) Amylase 95 (25-115) U/L Lipase (73-393) U/L Urine Color Urine Appearance Urine pH (5.0-8.0) Ur Specific Rankin (1.001-1.035) Urine Protein (NEGATIVE) mg/dL Urine Glucose (UA) (NEGATIVE) mg/dL Urine Ketones (NEGATIVE) mg/dL Urine Occult Blood (NEGATIVE) Urine Nitrite (NEGATIVE) Urine Bilirubin (NEGATIVE) Urine Urobilinogen (<2.0) EU/dL Ur Leukocyte Esterase (NEGATIVE) Urine RBC (0-2/HPF) Urine WBC (0-5/HPF) Ur Epithelial Cells (NONE-FEW) Urine Bacteria (NEGATIVE) Ethyl Alcohol mg/dL H. pylori IgG Antibody (NEG) Blood Type Antibody Screen Crossmatch 03/26/18 03/26/18 03/26/18 Range/Units 14:23 14:23 14:23 WBC (4.0-11.0) K/uL RBC (4.50-5.90) M/uL Hgb (13.0-17.0) g/dL Hct (38.0-50.0) % MCV (80.0-98.0) fL MCH (27.0-32.0) pg MCHC (31.0-37.0) g/dL RDW Std Deviation (28.0-62.0) fl RDW Coeff of Anna Marie (11.0-15.0) % Plt Count (150-400) K/uL MPV (7.40-12.00) fL Neut % (Auto) (48.0-80.0) % Lymph % (Auto) (16.0-40.0) % [place] % (Auto) (0.0-15.0) % Eos % (Auto) (0.0-7.0) % Baso % (Auto) (0.0-1.5) % Neut # (Auto) (1.4-5.7) K/uL Lymph # (Auto) (0.6-2.4) K/uL [place] # (Auto) (0.0-0.8) K/uL Eos # (Auto) (0.0-0.7) K/uL Baso # (Auto) (0.0-0.1) K/uL Add Manual Diff Neutrophils % (Manual) (48.0-80.0) % Band Neutrophils % % Lymphocytes % (Manual) (16.0-40.0) % Monocytes % (Manual) (0.0-15.0) % Eosinophils % (Manual) (0.0-7.0) % Nucleated RBC % /100WBC Absolute Seg Neuts (1.4-5.7) Band Neutrophils # Lymphocytes # (Manual) (0.6-2.4) Monocytes # (Manual) (0.0-0.8) Eosinophils # (Manual) (0.0-0.7) Nucleated RBCs # K/uL INR Sodium (136-148) mmol/L Potassium (3.5-5.1) mmol/L Chloride (98-107) mmol/L Carbon Dioxide (21.0-32.0) mmol/L BUN (7.0-18.0) mg/dL Creatinine (0.8-1.3) mg/dL Est Cr Clr Drug Dosing mL/min Estimated GFR (MDRD) ml/min Glucose (74-106) mg/dL Calcium (8.5-10.1) mg/dL Total Bilirubin (0.2-1.0) mg/dL AST (15-37) IU/L ALT (14-63) IU/L Alkaline Phosphatase (46-116) U/L Total Protein (6.4-8.2) g/dL Albumin (3.4-5.0) g/dL Globulin (2.0-3.5) g/dL Albumin/Globulin Ratio (1.3-2.8) Amylase (25-115) U/L Lipase 238 (73-393) U/L Urine Color Urine Appearance Urine pH (5.0-8.0) Ur Specific Rankin (1.001-1.035) Urine Protein (NEGATIVE) mg/dL Urine Glucose (UA) (NEGATIVE) mg/dL Urine Ketones (NEGATIVE) mg/dL Urine Occult Blood (NEGATIVE) Urine Nitrite (NEGATIVE) Urine Bilirubin (NEGATIVE) Urine Urobilinogen (<2.0) EU/dL Ur Leukocyte Esterase (NEGATIVE) Urine RBC (0-2/HPF) Urine WBC (0-5/HPF) Ur Epithelial Cells (NONE-FEW) Urine Bacteria (NEGATIVE) Ethyl Alcohol < 3.0 mg/dL H. pylori IgG Antibody NEGATIVE (NEG) Blood Type Antibody Screen Crossmatch 03/26/18 03/26/18 03/27/18 Range/Units 14:35 16:10 02:15 WBC (4.0-11.0) K/uL RBC (4.50-5.90) M/uL Hgb 9.7 L (13.0-17.0) g/dL Hct 29.1 L (38.0-50.0) % MCV (80.0-98.0) fL MCH (27.0-32.0) pg MCHC (31.0-37.0) g/dL RDW Std Deviation (28.0-62.0) fl RDW Coeff of Anna Marie (11.0-15.0) % Plt Count (150-400) K/uL MPV (7.40-12.00) fL Neut % (Auto) (48.0-80.0) % Lymph % (Auto) (16.0-40.0) % [place] % (Auto) (0.0-15.0) % Eos % (Auto) (0.0-7.0) % Baso % (Auto) (0.0-1.5) % Neut # (Auto) (1.4-5.7) K/uL Lymph # (Auto) (0.6-2.4) K/uL [place] # (Auto) (0.0-0.8) K/uL Eos # (Auto) (0.0-0.7) K/uL Baso # (Auto) (0.0-0.1) K/uL Add Manual Diff Neutrophils % (Manual) (48.0-80.0) % Band Neutrophils % % Lymphocytes % (Manual) (16.0-40.0) % Monocytes % (Manual) (0.0-15.0) % Eosinophils % (Manual) (0.0-7.0) % Nucleated RBC % /100WBC Absolute Seg Neuts (1.4-5.7) Band Neutrophils # Lymphocytes # (Manual) (0.6-2.4) Monocytes # (Manual) (0.0-0.8) Eosinophils # (Manual) (0.0-0.7) Nucleated RBCs # K/uL INR Sodium (136-148) mmol/L Potassium (3.5-5.1) mmol/L Chloride (98-107) mmol/L Carbon Dioxide (21.0-32.0) mmol/L BUN (7.0-18.0) mg/dL Creatinine (0.8-1.3) mg/dL Est Cr Clr Drug Dosing mL/min Estimated GFR (MDRD) ml/min Glucose (74-106) mg/dL Calcium (8.5-10.1) mg/dL Total Bilirubin (0.2-1.0) mg/dL AST (15-37) IU/L ALT (14-63) IU/L Alkaline Phosphatase (46-116) U/L Total Protein (6.4-8.2) g/dL Albumin (3.4-5.0) g/dL Globulin (2.0-3.5) g/dL Albumin/Globulin Ratio (1.3-2.8) Amylase (25-115) U/L Lipase (73-393) U/L Urine Color YELLOW Urine Appearance CLEAR Urine pH 6.0 (5.0-8.0) Ur Specific Rankin 1.010 (1.001-1.035) Urine Protein NEGATIVE (NEGATIVE) mg/dL Urine Glucose (UA) NEGATIVE (NEGATIVE) mg/dL Urine Ketones NEGATIVE (NEGATIVE) mg/dL Urine Occult Blood NEGATIVE (NEGATIVE) Urine Nitrite NEGATIVE (NEGATIVE) Urine Bilirubin NEGATIVE (NEGATIVE) Urine Urobilinogen 0.2 (<2.0) EU/dL Ur Leukocyte Esterase NEGATIVE (NEGATIVE) Urine RBC 0-1 (0-2/HPF) Urine WBC 0-1 (0-5/HPF) Ur Epithelial Cells RARE (NONE-FEW) Urine Bacteria RARE (NEGATIVE) Ethyl Alcohol mg/dL H. pylori IgG Antibody (NEG) Blood Type O POSITIVE Antibody Screen NEGATIVE Crossmatch See Detail 03/27/18 03/27/18 Range/Units 05:05 05:05 WBC 8.75 (4.0-11.0) K/uL RBC 3.37 L (4.50-5.90) M/uL Hgb 9.8 L (13.0-17.0) g/dL Hct 29.6 L (38.0-50.0) % MCV 87.8 (80.0-98.0) fL MCH 29.1 (27.0-32.0) pg MCHC 33.1 (31.0-37.0) g/dL RDW Std Deviation 49.9 (28.0-62.0) fl RDW Coeff of Anna Marie 17 H (11.0-15.0) % Plt Count 370 (150-400) K/uL MPV 8.70 (7.40-12.00) fL Neut % (Auto) 68.2 (48.0-80.0) % Lymph % (Auto) 22.7 (16.0-40.0) % [place] % (Auto) 6.1 (0.0-15.0) % Eos % (Auto) 2.5 (0.0-7.0) % Baso % (Auto) 0.5 (0.0-1.5) % Neut # (Auto) 6.0 H (1.4-5.7) K/uL Lymph # (Auto) 2.0 (0.6-2.4) K/uL [place] # (Auto) 0.5 (0.0-0.8) K/uL Eos # (Auto) 0.2 (0.0-0.7) K/uL Baso # (Auto) 0.0 (0.0-0.1) K/uL Add Manual Diff Neutrophils % (Manual) (48.0-80.0) % Band Neutrophils % % Lymphocytes % (Manual) (16.0-40.0) % Monocytes % (Manual) (0.0-15.0) % Eosinophils % (Manual) (0.0-7.0) % Nucleated RBC % 0.5 /100WBC Absolute Seg Neuts (1.4-5.7) Band Neutrophils # Lymphocytes # (Manual) (0.6-2.4) Monocytes # (Manual) (0.0-0.8) Eosinophils # (Manual) (0.0-0.7) Nucleated RBCs # 0 K/uL INR Sodium 136 (136-148) mmol/L Potassium 4.1 (3.5-5.1) mmol/L Chloride 104 (98-107) mmol/L Carbon Dioxide 27.5 (21.0-32.0) mmol/L BUN 9 (7.0-18.0) mg/dL Creatinine 1.0 (0.8-1.3) mg/dL Est Cr Clr Drug Dosing 77.96 mL/min Estimated GFR (MDRD) > 60.0 ml/min Glucose 96 (74-106) mg/dL Calcium 7.8 L (8.5-10.1) mg/dL Total Bilirubin (0.2-1.0) mg/dL AST (15-37) IU/L ALT (14-63) IU/L Alkaline Phosphatase (46-116) U/L Total Protein (6.4-8.2) g/dL Albumin (3.4-5.0) g/dL Globulin (2.0-3.5) g/dL Albumin/Globulin Ratio (1.3-2.8) Amylase (25-115) U/L Lipase (73-393) U/L Urine Color Urine Appearance Urine pH (5.0-8.0) Ur Specific Rankin (1.001-1.035) Urine Protein (NEGATIVE) mg/dL Urine Glucose (UA) (NEGATIVE) mg/dL Urine Ketones (NEGATIVE) mg/dL Urine Occult Blood (NEGATIVE) Urine Nitrite (NEGATIVE) Urine Bilirubin (NEGATIVE) Urine Urobilinogen (<2.0) EU/dL Ur Leukocyte Esterase (NEGATIVE) Urine RBC (0-2/HPF) Urine WBC (0-5/HPF) Ur Epithelial Cells (NONE-FEW) Urine Bacteria (NEGATIVE) Ethyl Alcohol mg/dL H. pylori IgG Antibody (NEG) Blood Type Antibody Screen Crossmatch Med Orders - Current: Current Medications Acetaminophen (Tylenol) 650 mg PO Q4H PRN PRN Reason: Pain Albuterol/Ipratropium (Duoneb 3.0-0.5 Mg/3 Ml) 3 ml NEB Q4HRRT PRN PRN Reason: Shortness Of Breath/wheezing Atorvastatin Calcium (Lipitor) 10 mg PO BEDTIME [facility] Last Admin: 03/26/18 20:11 Dose: 10 mg Fluticasone Propionate (Flonase) 0 gm NASBOTH DAILY [facility] Last Admin: 03/27/18 08:59 Dose: 1 spray Gabapentin (Neurontin) 300 mg PO TID [facility] Last Admin: 03/27/18 07:00 Dose: 300 mg Nicotine (Habitrol) 14 mg TRDERM DAILY [facility] Nicotine (Habitrol) 14 mg TRDERM DAILY [facility] Last Admin: 03/27/18 09:04 Dose: Not Given Ondansetron HCl (Zofran) 4 mg IVPUSH Q4H PRN PRN Reason: Nausea Pantoprazole Sodium (Protonix Iv) 40 mg IV Q12H [facility] Last Admin: 03/27/18 02:44 Dose: 40 mg Fluticasone/Salmeterol (Advair Diskus 250-50) 1 puff INH 0000,1200 [facility] Last Admin: 03/27/18 00:30 Dose: 1 puff Sodium Chloride (Saline Flush) 10 ml FLUSH ASDIRECTED PRN PRN Reason: Keep Vein Open Sodium Chloride (Saline Flush) 2.5 ml FLUSH ASDIRECTED PRN PRN Reason: Keep Vein Open Sucralfate (Carafate) 1 gm PO QIDACANDBED [facility] Last Admin: 03/27/18 07:00 Dose: 1 gm Trazodone HCl (Trazodone) 100 mg PO BEDTIME PRN PRN Reason: Insomnia Discontinued Medications Sodium Chloride (Normal Saline) 1,000 mls @ 999 mls/hr IV .Bolus ONE Stop: 03/26/18 15:23 Last Admin: 03/26/18 14:41 Dose: 999 mls/hr Sodium Chloride (Normal Saline) 1,000 mls @ 125 mls/hr IV ASDIRECTED [facility] Last Admin: 03/26/18 17:16 Dose: 125 mls/hr Pantoprazole Sodium 80 mg/ (Sodium Chloride) 100 mls @ 10 mls/hr IV .Continuous [facility] Pantoprazole Sodium (Protonix Iv) 80 mg IVPUSH .BOLUS ONE Stop: 03/26/18 14:30 Last Admin: 03/26/18 14:44 Dose: 80 mg Fluticasone/Salmeterol (Advair Diskus 250-50) 1 puff INH BID [facility] Last Admin: 03/26/18 22:14 Dose: Not Given - Exam General: Reports: Alert, Oriented, Cooperative, No Acute Distress Lungs: Reports: Normal Respiratory Effort, Wheezing, Other (chronic cough) Cardiovascular: Reports: Regular Rate, Regular Rhythm GI/Abdominal Exam: Normal Bowel Sounds, Soft, Non-Tender Extremities: Normal Inspection, Normal Range of Motion, Non-Tender, No Pedal Edema, Normal Capillary Refill Skin: Reports: Warm, Dry, Intact Neurological: Reports: No New Focal Deficit Psy/Mental Status: Reports: Alert, Normal Affect, Normal Mood *Q Meaningful Use (DIS) - VTE *Q VTE Pharmacological Contraindications *Q: Risk of Bleeding
== END 2018-03-27 10:45 | disposition home or self-care (01) | DRG 378 ==
LOC: MW.ED 14:02 → MW.MS 16:34
PROVIDERS: ADMIT Internal Medicine; ATTEND Internal Medicine
PROC: 30233N1 Transfusion of Nonautologous Red Blood Cells into Peripheral Vein, Percutaneous Approach (ICD-10-PCS; principal; 2018-03-26)
DX: K27.4 Chronic or unspecified peptic ulcer, site unspecified, with hemorrhage (principal); D62 Acute posthemorrhagic anemia; R55 Syncope and collapse; J44.9 Chronic obstructive pulmonary disease, unspecified; E78.00 Pure hypercholesterolemia, unspecified; E78.5 Hyperlipidemia, unspecified; I10 Essential (primary) hypertension; K21.9 Gastro-esophageal reflux disease without esophagitis; K29.80 Duodenitis without bleeding; Z85.820 Personal history of malignant melanoma of skin; F17.210 Nicotine dependence, cigarettes, uncomplicated; F41.9 Anxiety disorder, unspecified; Z79.899 Other long term (current) drug therapy
CPT/HCPCS: 36415; 71045; 80053; 81001; 82150; 83690; 85025; 85610; 86677; 93005; 96374; 99285; C9113; G0480; J7040; 36430; 80048; 85014; 85018; 86850; 86900; 86901; 86920; 86921; 86922; 99284; A9270-GY; P9016

== ENCOUNTER 2018-05-08 13:21 | Day surgery (SDC) | payer MEDICARE, MEDICAID ==
[2018-05-08] MEDS ORDERED: Midazolam 1 MG/ML 2 ML SDV ONE (13:24)
[2018-05-08] MEDS ORDERED: Propofol 200 MG/20 ML SDV ONE (13:24)
--- NOTE | 2018-05-08 13:53 | PCM.PREANE ---
Preanesthetic Assessment - Anesthesia/Transfusion/Family Hx Anesthesia History: Prior Anesthesia Without Reaction Family History of Anesthesia Reaction: No Transfusion History: No Prior Transfusion(s) Intubation History: Unknown - Review of Systems General: No Symptoms Pulmonary: No Symptoms Cardiovascular: No Symptoms Gastrointestinal: Other (upper GI bleed last month ( 2 units PRBC )) Neurological: Paresthesia (hands) Other: Reports: None - Physical Assessment Height: 1.8 m Weight: 70.76 kg ASA Class: 3 Mental Status: Alert & Oriented x3 Airway Class: Mallampati = 2 Dentition: Reports: Partial (upper and lower) Thyro-Mental Finger Breadths: 3 Mouth Opening Finger Breadths: 2 ROM/Head Extension: Limited/Partial Lungs: Wheezing (difuse expiratory ) - Allergies Allergies/Adverse Reactions: Allergies Allergy/AdvReac Type Severity Reaction Status Date / Time No Known Allergies Allergy Verified 05/05/18 11:38 - Blood Blood Available: No - Anesthesia Plan Pre-Op Medication Ordered: None - Acknowledgements Anesthesia Type Planned: MAC Pt an Appropriate Candidate for the Planned Anesthesia: Yes Alternatives and Risks of Anesthesia Discussed w Pt/Guardian: Yes Pt/Guardian Understands and Agrees with Anesthesia Plan: Yes PreAnesthesia Questionnaire HEENT History: Reports: Other (See Below) Other HEENT History: uses reading glasses, has upper and lower partial removable dentures Cardiovascular History: Reports: High Cholesterol, Hypertension Respiratory History: Reports: COPD (severe) Gastrointestinal History: Reports: GI Bleed (requiring 2 units of PRBC march 26, 2018.) Genitourinary History: Reports: None Musculoskeletal History: Reports: Back Pain, Chronic, Fracture Other Musculoskeletal History: hx fx ribs Neurological History: Reports: None, Neuropathy, Peripheral Other Neuro History: has degenerative disc disease Psychiatric History: Reports: Anxiety Endocrine/Metabolic History: Reports: Other (See Below) Other Endocrine/Metabolic History: pre-diabetic Hematologic History: Reports: Anemia Oncologic (Cancer) History: Reports: Other (See Below) Other Oncologic History: hx of melanoma removed from arm Dermatologic History: Reports: Melanoma Other Dermatologic History: states melanoma to arms - Infectious Disease History Infectious Disease History: Reports: Chicken Pox, Measles, Mumps - Past Surgical History HEENT Surgical History: Reports: Other (See Below) Other HEENT Surgeries/Procedures: hx of excision of neck lesion and removal of jaw tumor (benign) GI Surgical History: Reports: Colonoscopy, EGD Musculoskeletal Surgical History: Reports: Shoulder Surgery Other Musculoskeletal Surgeries/Procedures:: hx of left RTCR - SUBSTANCE USE Smoking Status *Q: Current Every Day Smoker (now 1/2 ppd) Tobacco Use Within Last Twelve Months: Cigarettes Recreational Drug Use History: Yes Recreational Drug Type: Reports: Marijuana/Hashish - HOME MEDS Home Medications: Home Meds Fluticasone Furoate [Flonase Sensimist] 1 spray NASBOTH DAILY 07/08/17 [History] Fluticasone/Salmeterol [Advair 250-50 Diskus] 1 puff INH BID 07/08/17 [History] Gabapentin [Neurontin] 300 mg PO TID 07/08/17 [History] Sildenafil Citrate [Sildenafil] 5 tab PO ASDIRECTED PRN 07/08/17 [History] amLODIPine [Norvasc] 10 mg PO DAILY 07/08/17 [History] atorvaSTATin [Lipitor] 10 mg PO DAILY 07/08/17 [History] traZODone HCl [Trazodone HCl] 100 mg PO BEDTIME 07/08/17 [History] Irbesartan [Avapro] 150 mg PO DAILY 03/26/18 [History] Pantoprazole Sodium [Protonix] 40 mg PO BID #60 tablet. 03/26/18 [Rx] traMADol HCl [Tramadol HCl] 50 tab PO TID PRN 03/26/18 [History] Chlorhexidine Gluconate [Peridex 0.12% Rinse] 1 dose PO ASDIRECTED 05/05/18 [ History] Ferrous Sulfate 325 mg PO DAILY 05/05/18 [History] - CURRENT (IN HOUSE) MEDS Current Meds: Current Medications Lactated Ringer's (Ringers, Lactated) 1,000 mls @ 125 mls/hr IV ASDIRECTED SHEELA Last Admin: 05/08/18 13:48 Dose: 125 mls/hr Discontinued Medications Midazolam HCl (Versed 1 Mg/Ml) Confirm Administered Dose 2 mg .ROUTE .STK-MED ONE Stop: 05/08/18 13:25 Propofol (Diprivan 20 Ml) Confirm Administered Dose 400 mg .ROUTE .STK-MED ONE Stop: 05/08/18 13:25
--- NOTE | 2018-05-08 14:11 | PCM.OPNOTE ---
- General Post-Op/Procedure Note Date of Surgery/Procedure: 05/08/18 Operative Procedure(s): egd w bx Findings: see dict [id number] Pre Op Diagnosis: anemia Post-Op Diagnosis: Same Anesthesia Technique: Moderate Sedation Primary Surgeon: Dickson Garces Pathology: egd bx Complications: None Condition: Good
--- NOTE | 2018-05-08 14:13 | PCM.POSTAN ---
POST ANESTHESIA ASSESSMENT - RESPIRATORY Respiratory Status: Respiratory Rate WNL - CARDIOVASCULAR CV Status: Pulse Rate WNL - GASTROINTESTINAL GI Status: No Symptoms - POST OP HYDRATION Hydration Status: Adequate & Stable
--- NOTE | 2018-05-08 14:29 | PCM48HPAN ---
Post Anesthesia Note - EVALUATION WITHIN 48HRS OF ANESTHETIC Vital Signs in Normal Range: Yes Patient Participated in Evaluation: Yes Respiratory Function Stable: Yes Airway Patent: Yes Cardiovascular Function Stable: Yes Hydration Status Stable: Yes Pain Control Satisfactory: Yes Nausea and Vomiting Control Satisfactory: Yes Mental Status Recovered: Yes Pulse Rate: 77 SaO2: 100 Resp Rate: 18 Blood Pressure: 106/72
--- NOTE | 2018-05-08 16:50 | OR ---
SURGEON: Dickson Garces MD DATE OF PROCEDURE: 05/08/2018 PREOPERATIVE DIAGNOSIS: Anemic. POSTOPERATIVE DIAGNOSES: Gastritis and gastroesophageal reflux disease. PROCEDURE PERFORMED: Esophagogastroduodenoscopy with biopsy. PROCEDURE IN DETAIL: EGD: The patient was taken to the endoscopy room, and with the RAILWAY SHUNTER, Diprivan was administered. A well-lubricated EGD scope was gently inserted through the oropharynx, down the esophagus, passing through the gastroesophageal junction, into the stomach. The mucosa was examined upon the passage. Any etiology will be noted. Once in the stomach, we continued to advance to the distal antrum, passed through the pylorus into the second portion of the duodenum. Again, the mucosa was examined for any abnormality and etiology. The scope was then retrieved back to the stomach and then retroflexed to look at the fundus of the stomach. If a biopsy was indicated, we will biopsy the antrum, body, and gastroesophageal junction. The air will be sucked out while the scope is retrieved to reduce the patient's discomfort. The patient tolerated the procedure well. There were no intraoperative complications. Dr. Garces was present through the whole procedure. Prior to surgery, a time-out had been called, the patient identified, procedure identified and antibiotic administered. FINDINGS: 1. The patient is easily sedated with RAILWAY SHUNTER and Diprivan. The patient is soundly snoring. 2. Oropharynx and proximal esophagus are normal in appearance and no stricture inflammation. Distal esophagus at distance 36 shows like starting Schatzki ring and inflamed. Stomach rugae is pretty flattened consistent with acid production, and there are some petechiae at the GE junction. There is no hemorrhaging, but looked like it is inflamed and antrum is inflamed. Duodenum was grossly normal in appearance and retroflexed look at the fundus of stomach, there was no hiatal hernia. Biopsy done at antrum, body, GE junction at 40 and sucked out the gas while scope pulling up. During the whole examination, there is no bile, blood, ulcer, or food particle. MODE / PREM /[id number]
== END 2018-05-08 14:49 | disposition home or self-care (01) ==
LOC: MW.SDS 13:21
PROVIDERS: ATTEND Surgery
DX: D64.9 Anemia, unspecified (principal); K29.70 Gastritis, unspecified, without bleeding; K21.9 Gastro-esophageal reflux disease without esophagitis; K22.2 Esophageal obstruction; J44.9 Chronic obstructive pulmonary disease, unspecified; I10 Essential (primary) hypertension; N52.9 Male erectile dysfunction, unspecified; E78.1 Pure hyperglyceridemia; G60.3 Idiopathic progressive neuropathy; F17.210 Nicotine dependence, cigarettes, uncomplicated; F41.9 Anxiety disorder, unspecified; Z79.899 Other long term (current) drug therapy
CPT/HCPCS: 43239; J2250; J2704; J7120; 00731

== ENCOUNTER 2018-12-04 10:09 | Day surgery (SDC) | payer MEDICARE, MEDICAID ==
[2018-12-04] MEDS ORDERED: Propofol 200 MG/20 ML SDV ONE (11:16)
[2018-12-04] MEDS ORDERED: Midazolam 1 MG/ML 2 ML SDV ONE (11:16)
[2018-12-04] MEDS ORDERED: fentaNYL 100 MCG/2 ML SDV ONE (11:16)
[2018-12-04] MEDS ORDERED: Glycopyrrolate 0.2 MG/ML SDV ONE (11:16)
[2018-12-04] MEDS ORDERED: Albuterol/Ipratropium 3.0-0.5 MG/3 ML Neb Soln NEB ONE (11:31)
--- NOTE | 2018-12-04 11:31 | PCM.PREANE ---
Preanesthetic Assessment - Anesthesia/Transfusion/Family Hx Anesthesia History: Prior Anesthesia Without Reaction Family History of Anesthesia Reaction: No Transfusion History: No Prior Transfusion(s) Intubation History: Unknown - Review of Systems General: No Symptoms Pulmonary: No Symptoms Cardiovascular: No Symptoms Gastrointestinal: Abdominal Pain, Hematochezia, Other (h/o polyp) Neurological: No Symptoms Other: Reports: None - Physical Assessment Height: 1.8 m Weight: 68.492 kg ASA Class: 3 Mental Status: Alert & Oriented x3 Airway Class: Mallampati = 2 Dentition: Reports: Partial (upper and lower) Thyro-Mental Finger Breadths: 3 Mouth Opening Finger Breadths: 3 ROM/Head Extension: Limited/Partial Lungs: Decreased Breath Sounds, Crackles, Rhonchi Cardiovascular: Regular Rate, Regular Rhythm - Allergies Allergies/Adverse Reactions: Allergies Allergy/AdvReac Type Severity Reaction Status Date / Time No Known Allergies Allergy Verified 12/01/18 11:33 - Blood Blood Available: No - Anesthesia Plan Pre-Op Medication Ordered: None - Acknowledgements Anesthesia Type Planned: MAC Pt an Appropriate Candidate for the Planned Anesthesia: Yes Alternatives and Risks of Anesthesia Discussed w Pt/Guardian: Yes Pt/Guardian Understands and Agrees with Anesthesia Plan: Yes PreAnesthesia Questionnaire HEENT History: Reports: Other (See Below) Other HEENT History: uses reading glasses, has upper and lower dentures Cardiovascular History: Reports: High Cholesterol, Hypertension, Other (See Below) Other Cardiovascular History: hx of rheumatic fever Respiratory History: Reports: COPD (moderate/severe), SOB (can't walk two blocks without SOB) Gastrointestinal History: Reports: GI Bleed Genitourinary History: Reports: Other (See Below) (renal cyst) Musculoskeletal History: Reports: Back Pain, Chronic Other Musculoskeletal History: hx fx ribs Neurological History: Reports: None, Neuropathy, Peripheral Other Neuro History: has degenerative disc disease Psychiatric History: Reports: Anxiety Endocrine/Metabolic History: Reports: Other (See Below) Other Endocrine/Metabolic History: pre-diabetic Hematologic History: Reports: Anemia Oncologic (Cancer) History: Reports: Other (See Below) Other Oncologic History: hx of melanoma removed from arm Dermatologic History: Reports: Eczema Other Dermatologic History: states melanoma to arms - Infectious Disease History Infectious Disease History: Reports: Chicken Pox, Measles, Mumps - Past Surgical History HEENT Surgical History: Reports: Other (See Below) Other HEENT Surgeries/Procedures: Excision of neck lesion, excision of cyst from jaw GI Surgical History: Reports: Colonoscopy (2 years ago), EGD Musculoskeletal Surgical History: Reports: Shoulder Surgery Other Musculoskeletal Surgeries/Procedures:: hx of left RTCR - SUBSTANCE USE Smoking Status *Q: Current Every Day Smoker (< 1/2 ppd) Tobacco Use Within Last Twelve Months: Cigarettes Recreational Drug Use History: Yes Recreational Drug Type: Reports: Marijuana/Hashish - HOME MEDS Home Medications: Home Meds Fluticasone Furoate [Flonase Sensimist] 1 spray NASBOTH DAILY 07/08/17 [History] Fluticasone/Salmeterol [Advair 250-50 Diskus] 1 puff INH BID 07/08/17 [History] Gabapentin [Neurontin] 300 mg PO TID 07/08/17 [History] Sildenafil Citrate [Sildenafil] 5 tab PO ASDIRECTED PRN 07/08/17 [History] amLODIPine [Norvasc] 10 mg PO DAILY 07/08/17 [History] atorvaSTATin [Lipitor] 10 mg PO ASDIRECTED 07/08/17 [History] traZODone HCl [Trazodone HCl] 100 mg PO BEDTIME 07/08/17 [History] Irbesartan [Avapro] 150 mg PO DAILY 03/26/18 [History] Pantoprazole Sodium [Protonix] 40 mg PO BID #60 tablet. 03/26/18 [Rx] Albuterol Sulfate [Proair Hfa] 2 puff INH ASDIRECTED PRN 12/01/18 [History] - CURRENT (IN HOUSE) MEDS Current Meds: Current Medications Lactated Ringer's (Ringers, Lactated) 1,000 mls @ 125 mls/hr IV ASDIRECTED SHEELA Discontinued Medications Fentanyl (Sublimaze) Confirm Administered Dose 100 mcg .ROUTE .STK-MED ONE Stop: 12/04/18 11:17 Glycopyrrolate (Robinul) Confirm Administered Dose 0.2 mg .ROUTE .STK-MED ONE Stop: 12/04/18 11:17 Lidocaine HCl (Xylocaine-Mpf 1%) Confirm Administered Dose 5 mls @ as directed .ROUTE .STK-MED ONE Stop: 12/04/18 11:17 Midazolam HCl (Versed 1 Mg/Ml) Confirm Administered Dose 2 mg .ROUTE .STK-MED ONE Stop: 12/04/18 11:17 Propofol (Diprivan 20 Ml) Confirm Administered Dose 400 mg .ROUTE .STK-MED ONE Stop: 12/04/18 11:17
--- NOTE | 2018-12-04 12:45 | PCM.OPNOTE ---
- General Post-Op/Procedure Note Date of Surgery/Procedure: 12/04/18 Operative Procedure(s): colonoscopy w snare polypectomy Findings: see dict [id number] Pre Op Diagnosis: BRBRPR Post-Op Diagnosis: Same Anesthesia Technique: Moderate Sedation Primary Surgeon: Dickson Garces Pathology: biopsy removal polyp at 1.3 m, snare polypectomy at 1m, 90 cm and 40 cm Complications: None Condition: Good
--- NOTE | 2018-12-04 13:16 | PCM48HPAN ---
Post Anesthesia Note - EVALUATION WITHIN 48HRS OF ANESTHETIC Vital Signs in Normal Range: Yes Patient Participated in Evaluation: Yes Respiratory Function Stable: Yes Airway Patent: Yes Cardiovascular Function Stable: Yes Hydration Status Stable: Yes Pain Control Satisfactory: Yes Nausea and Vomiting Control Satisfactory: Yes Mental Status Recovered: Yes Resp Rate: 17 - COMMENTS/OBSERVATIONS Free Text/Narrative:: no anesthesia problems
--- NOTE | 2018-12-04 17:53 | OR ---
SURGEON: Dickson Garces MD DATE OF PROCEDURE: 12/04/2018 PREOPERATIVE DIAGNOSIS: Bright red blood per rectum. POSTOPERATIVE DIAGNOSIS: Bright red blood per rectum. PROCEDURE PERFORMED: Colonoscopy with snare polypectomy. COMPLICATION: None. PROCEDURE IN DETAIL: The patient was taken to the endoscopy room. A time out was called, patient identified, and procedure identified. Diprivan was then administrated. Patient went from awake to sleep, hearing doctor talking or door closing is normal. Perineum inspection and digital examination were then performed. A well- lubricated colonoscope was gently inserted through the rectum, advanced past the rectosigmoid junction, the descending colon, splenic flexure, transverse colon, hepatic flexure, ascending colon, arrived to the cecum. Cecum was identified as dictated in the finding. Then the scope was carefully withdrawn while attention was paid to the mucosal surface for any abnormality. Air will be sucked out during the scope withdrawal. At the rectum, retroflexed to examine any rectal diseases, fistula or hemorrhoids. During mucosal examination, polyp encountered. Using snare equipment, the abnormality or the polyp was then snared off using electrocautery. The Patient tolerated procedure well. There were no intraoperative complications, and Dr. Garces was present throughout the whole procedure. FINDINGS: 1. The patient is easily sedated with MANAGER FINE DINING and Diprivan. The patient is soundly snoring. Prior to surgery, the patient had been given some bronchodilator, and has some wheezing, and is a heavy smoker. 2. Bowel prep is average. Large amount of liquid stool, and no semi-formed stool. 3. Colon is rather straight forward. Cecum indicated by ileocecal fold, one- to-one indentation limitations, and appendiceal orifice. Mucosa examined upon scope pulling out. The patient has quite a few small polyps and all sessile ranged from 2 to 5 mm. One at distant 120 cm when scope go in and one at 1 m when scope coming out and 90 when scope coming out and 40 when scope coming out, and they are all running around 2 to 4 mm in size. All removed with snare polypectomy and some removed with cold biopsy forceps, the first one with cold biopsy forceps while the last 3 were with snare polypectomy. The patient has mild diverticulosis, and no signs or symptoms of diverticulitis, and no inflammation, stricture, ulceration, AV malformation, no other growth, none of these. The patient has mild internal hemorrhoids. No external hemorrhoids. The patient would benefit from repeat colonoscopy in three years from today because of more than three polyps. MODE / PREM /[id number] MTDD
== END 2018-12-04 13:45 | disposition home or self-care (01) ==
LOC: MW.SDS 10:09
PROVIDERS: ATTEND Surgery
DX: K62.5 Hemorrhage of anus and rectum (principal); D12.3 Benign neoplasm of transverse colon; D12.5 Benign neoplasm of sigmoid colon; K57.30 Diverticulosis of large intestine without perforation or abscess without bleeding; K64.8 Other hemorrhoids; I10 Essential (primary) hypertension; J44.9 Chronic obstructive pulmonary disease, unspecified; F17.210 Nicotine dependence, cigarettes, uncomplicated; E78.00 Pure hypercholesterolemia, unspecified; D64.9 Anemia, unspecified; F41.9 Anxiety disorder, unspecified; Z79.899 Other long term (current) drug therapy
CPT/HCPCS: 45385; 94640; J2001; J2250; J2704; J3010; J3490; J7120; 88305; J7620-GY

== ENCOUNTER 2019-04-01 14:44 | Emergency (ER) | payer MEDICARE, MEDICAID ==
--- NOTE | 2019-04-01 14:57 | EDM.PDOC ---
ED HPI GENERAL MEDICAL PROBLEM - General Chief Complaint: Lower Extremity Injury/Pain Stated Complaint: LEFT FOOT PAIN Time Seen by Provider: 04/01/19 14:57 Source of Information: Reports: Patient History Limitations: Reports: No Limitations - History of Present Illness INITIAL COMMENTS - FREE TEXT/NARRATIVE: HISTORY AND PHYSICAL: History of present illness: Patient is a 68-year-old male presents to the ED with complaint of left foot injury. He states he dropped a board on it a couple of days ago. He is able to walk on it but states it is painful. He denies other injury and has no other complaints at this time. Review of systems: As per history of present illness and below otherwise all systems reviewed and negative. Past medical history: As per history of present illness and as reviewed below otherwise noncontributory. Surgical history: As per history of present illness and as reviewed below otherwise noncontributory. Social history: No reported history of drug or alcohol abuse. Family history: As per history of present illness and as reviewed below otherwise noncontributory. Physical exam: General: Patient sitting comfortably in no acute distress and nontoxic appearing HEENT: Atraumatic, normocephalic, pupils reactive, negative for conjunctival pallor or scleral icterus, mucous membranes moist, throat clear, neck supple, nontender, trachea midline. No meningeal signs. Lungs: Clear to auscultation, breath sounds equal bilaterally, chest nontender. Heart: S1S2, regular, negative for clicks, rubs, or overt murmur. Abdomen: Soft, nondistended, nontender. Negative for masses or hepatosplenomegaly. Negative for costovertebral tenderness. No rigidity, rebound , guarding. Pelvis: Stable nontender. Genitourinary: Deferred. Rectal: Deferred. Extremities: Ecchymosis of the distal 2nd and 3rd MTPs of the left foot with tenderness to palpation. negative for cords or calf pain. Neurovascular unremarkable. Neuro: Awake, alert, oriented. Cranial nerves II through XII unremarkable. Cerebellum unremarkable. Motor and sensory unremarkable throughout. Exam nonfocal. Notes: Diagnostics: Left foot x-ray Therapeutics: Post-op shoe Prescriptions: Impression: Foot injury Plan: Ice, elevate, and motrin as needed Follow up with primary care provider Return to ED as needed as discussed Definitive disposition and diagnosis as appropriate pending reevaluation and review of above. - Related Data Allergies Allergy/AdvReac Type Severity Reaction Status Date / Time No Known Allergies Allergy Verified 04/01/19 14:57 Home Meds: Home Meds Fluticasone Furoate [Flonase Sensimist] 1 spray NASBOTH DAILY 07/08/17 [History] Fluticasone/Salmeterol [Advair 250-50 Diskus] 1 puff INH BID 07/08/17 [History] Gabapentin [Neurontin] 300 mg PO TID 07/08/17 [History] Sildenafil Citrate 5 tab PO ASDIRECTED PRN 07/08/17 [History] amLODIPine [Norvasc] 10 mg PO DAILY 07/08/17 [History] atorvaSTATin [Lipitor] 10 mg PO ASDIRECTED 07/08/17 [History] traZODone HCl [Trazodone HCl] 100 mg PO BEDTIME 07/08/17 [History] Irbesartan [Avapro] 150 mg PO DAILY 03/26/18 [History] Pantoprazole Sodium [Protonix] 40 mg PO BID #60 tablet. 03/26/18 [Rx] Albuterol Sulfate [Proair Hfa] 2 puff INH ASDIRECTED PRN 12/01/18 [History] Past Medical History HEENT History: Reports: Other (See Below) Other HEENT History: uses reading glasses, has upper and lower dentures Cardiovascular History: Reports: High Cholesterol, Hypertension, Other (See Below) Other Cardiovascular History: hx of rheumatic fever Respiratory History: Reports: COPD (moderate/severe), SOB (can't walk two blocks without SOB) Gastrointestinal History: Reports: GI Bleed Genitourinary History: Reports: Other (See Below) (renal cyst) Musculoskeletal History: Reports: Back Pain, Chronic Other Musculoskeletal History: hx fx ribs Neurological History: Reports: None, Neuropathy, Peripheral Other Neuro History: has degenerative disc disease Psychiatric History: Reports: Anxiety Endocrine/Metabolic History: Reports: Other (See Below) Other Endocrine/Metabolic History: pre-diabetic Hematologic History: Reports: Anemia Oncologic (Cancer) History: Reports: Other (See Below) Other Oncologic History: hx of melanoma removed from arm Dermatologic History: Reports: Eczema Other Dermatologic History: states melanoma to arms - Infectious Disease History Infectious Disease History: Reports: Chicken Pox, Measles, Mumps - Past Surgical History HEENT Surgical History: Reports: Other (See Below) Other HEENT Surgeries/Procedures: Excision of neck lesion, excision of cyst from jaw GI Surgical History: Reports: Colonoscopy (2 years ago), EGD Musculoskeletal Surgical History: Reports: Shoulder Surgery Other Musculoskeletal Surgeries/Procedures:: hx of left RTCR Social & Family History - Family History Family Medical History: Noncontributory Cardiac: Reports: Bypass - Caffeine Use Caffeine Use: Reports: Soda - Living Situation & Occupation Living situation: Reports: Single Occupation: Employed Review of Systems - Review of Systems Review Of Systems: ROS reveals no pertinent complaints other than HPI. ED EXAM, GENERAL - Physical Exam Exam: See Below (see dictation) Course - Vital Signs Last Recorded V/S: Last Vital Signs Temp 97.3 F 04/01/19 14:59 Pulse 88 04/01/19 14:59 Resp 18 04/01/19 14:59 BP 134/74 04/01/19 14:59 Pulse Ox 98 04/01/19 14:59 - Orders/Labs/Meds Orders: Active Orders 24 hr Category Date Time Status DME for Discharge [COMM] Stat Oth 04/01/19 16:26 Ordered Departure - Departure Time of Disposition: 16:26 Disposition: Home, Self-Care 01 Condition: Good Clinical Impression: Injury of foot, left - Discharge Information Referrals: PCP,None [Primary Care Provider] - Forms: ED Department Discharge Additional Instructions: The following information is given to patients seen in the emergency department who are being discharged to home. This information is to outline your options for follow-up care. We provide all patients seen in our emergency department with a follow-up referral. The need for follow-up, as well as the timing and circumstances, are variable depending upon the specifics of your emergency department visit. If you don't have a primary care physician on staff, we will provide you with a referral. We always advise you to contact your personal physician following an emergency department visit to inform them of the circumstance of the visit and for follow-up with them and/or the need for any referrals to a consulting specialist. The emergency department will also refer you to a specialist when appropriate. This referral assures that you have the opportunity for follow-up care with a specialist. All of these measure are taken in an effort to provide you with optimal care, which includes your follow-up. Under all circumstances we always encourage you to contact your private physician who remains a resource for coordinating your care. When calling for follow-up care, please make the office aware that this follow-up is from your recent emergency room visit. If for any reason you are refused follow-up, please contact the [facility] Emergency Department at and asked to speak to the emergency department charge nurse. [facility] [address] [place] [id number] [facility] [address] [place] [id number] Ice, elevate, and motrin as needed Follow up with primary care provider Return to ED as needed as discussed - My Orders Last 24 Hours: My Active Orders 04/01/19 16:26 DME for Discharge [COMM] Stat - Assessment/Plan Last 24 Hours: My Active Orders 04/01/19 16:26 DME for Discharge [COMM] Stat
--- NOTE | 2019-04-01 16:22 | CR ---
INDICATION: Pain, dropped a board on foot TECHNIQUE: Foot radiograph 2 views left COMPARISON: 11/13/16 FINDINGS: Bone: No acute fractures or aggressive bone lesions are identified. Joint: The visualized hindfoot, midfoot, and forefoot joints are unremarkable in appearance. No significant ankle effusion is seen. Soft tissue: Unremarkable. No radiopaque foreign bodies are seen. IMPRESSION: 1. No acute osseous injuries or abnormalities are noted. Dictated by: Rommel Iyer MD @ 04/01/2019 16:21:24 (Electronically Signed)
== END 2019-04-01 16:38 | disposition home or self-care (01) ==
LOC: MW.ED 14:44
DX: S90.32XA Contusion of left foot, initial encounter (principal); I10 Essential (primary) hypertension; F41.9 Anxiety disorder, unspecified; J44.9 Chronic obstructive pulmonary disease, unspecified; Z79.899 Other long term (current) drug therapy; Z86.2 Personal history of diseases of the blood and blood-forming organs and certain disorders involving the immune mechanism; W20.8XXA Other cause of strike by thrown, projected or falling object, initial encounter
CPT/HCPCS: 73620-26-LT; 73620-LT; 99283-25

== ENCOUNTER 2020-04-24 09:58 | Day surgery (SDC) | payer MEDICARE, MEDICAID ==
[2020-04-24] MEDS ORDERED: Bupivacaine 0.5% 10 ML SDV ONE (09:59)
[2020-04-24] MEDS ORDERED: Lidocaine 1% 20 ML MDV ONE (10:00)
[2020-04-24] MEDS ORDERED: ceFAZolin 2 GM in Premix Bag 1 BAG IV ONE (11:34)
[2020-04-24] MEDS ORDERED: Lactated Ringers 1,000 ML IV SCH (11:45)
[2020-04-24] MEDS ORDERED: Lidocaine 1% with EPINEPHrine 1:100,000 10 ML MDV ONE (12:10)
--- NOTE | 2020-04-24 13:34 | PCM.OPNOTE ---
- General Post-Op/Procedure Note Date of Surgery/Procedure: 04/24/20 Operative Procedure(s): exostectomy left foot Findings: consistent with diagnosis Pre Op Diagnosis: exostectomy left foot Post-Op Diagnosis: exostectomy left foot Anesthesia Technique: Local Primary Surgeon: Torsten Lee Pathology: portion of exostosis resected from left calcaneus anterolateral aspect overlaying calcaneal cuboid joint EBL in mLs: 10 Complications: none Condition: Good Free Text/Narrative:: injectables: preoperatively 8 ml of 1% lidocaine with epinephrine 1:100,000 injected about surgical site left foot, at conclusion of procedure 8 ml of 0.5% marcaine plain injected about surgical site left foot materials: 4-0 vicryl, 4-0 prolene hemostasis: none
--- NOTE | 2020-04-24 15:17 | PN ---
The patient is a 69-year-old male. DATE OF SURGERY: April 24, 2020. SURGEON: Torsten Lee DPM. PREOPERATIVE DIAGNOSIS: Exostosis of the left foot. PLANNED PROCEDURE: Exostectomy, left foot. The exostosis is located at the anterolateral calcaneus overlying the calcaneocuboid joint of the left foot. ALLERGIES: No known allergies. ACTIVE PROBLEMS: The patient has extensive list of active problems, which has been reviewed and most importantly, the patient has severe COPD. Therefore, the anesthesia will be limited to local anesthesia only. Active problems include, but may not be limited to abdominal pain, abnormal gait, acute foot pain on the left, anemia, anxiety, acute otitis media, arthritis of the back, capsulitis, carpal tunnel syndrome of the left wrist, chest pain with moderate coronary artery risk, chronic back pain, COPD, COPD exacerbation, degenerative disk disease, diverticulosis, duodenitis, elevated glucose, epididymal pain, erectile dysfunction, hallux limitus on the left, hematuria, hypercholesterolemia, hypertension, hypertriglyceridemia, idiopathic progressive polyneuropathy, insomnia, metatarsalgia, middle ear effusion, neuropathy, nicotine abuse, numbness and tingling, joint pain in the hand, peptic ulcer disease, left foot plantar fasciitis, polyp in the colon, poor appetite, poor circulation of extremities, prediabetes, rectal bleeding, renal cyst, sebaceous cyst, seborrheic keratosis, skin lesions, shortness of breath on exertion, subcutaneous nodule, tendinitis of the forearm, tendinitis of the hand, tubular adenoma of the colon, and weight loss. PAST MEDICAL HISTORY: Includes acute gout of left foot and history of shoulder surgery, and rheumatic fever. PAST SURGICAL HISTORY: He has had a colonoscopy, esophagogastroduodenoscopy, excision of lesion on the neck, benign cyst excision from the jaw, shoulder surgery on the left. SOCIAL HISTORY: The patient is an active smoker. Admits to smoking half pack per day and has been cautioned that this could complicate his recovery from surgery. EKG showed normal sinus rhythm. LABS: INR 0.96, PTT 30.6, hemoglobin 17.1, white blood cell count was 9.22, red blood cell count 5.58, hemoglobin was 17.1, hematocrit 52.2, platelets 247. Sodium 140, potassium of 3.7, chloride 101, CO2 of 26.6, random glucose 104, BUN 13, creatinine 1.2. Chest x-ray showed nothing acute, but emphysematous change was described. EKG showed sinus rhythm. The patient presents for surgical treatment consisting of exostectomy of left foot exostosis. All risks and benefits have been discussed with the patient. All patient questions have been asked and answered. No guarantees have been expressed or implied. The patient's consent with a witness present was obtained and placed in the patient's chart in writing. CIRA AMARO /[id number] MTDD
--- NOTE | 2020-04-24 19:38 | OR ---
SURGEON: Torsten Lee DPM DATE OF PROCEDURE: 04/24/2020 PRIMARY SURGEON: Torsten Lee DPM. PREOPERATIVE DIAGNOSIS: Exostosis, left foot. POSTOPERATIVE DIAGNOSIS: Exostosis, left foot. OPERATIVE PROCEDURE: Exostectomy, left foot. FINDINGS: Consistent with diagnosis. ANESTHESIA: Local only. HEMOSTASIS: None. PATHOLOGY: Portion of exostosis resected from the left calcaneus anterolateral aspect overlying the calcaneocuboid joint. ESTIMATED BLOOD LOSS: 10 mL. COMPLICATIONS: None. JUSTIFICATION FOR THE PROCEDURE: The patient is an established patient of mine who has a longstanding complaint of a painful bump on his left foot, which was confirmed by CT scan to be an exostosis overlying the calcaneocuboid joint of the left foot. The patient had stated that he has had this bump for over 40 years and it has gotten bigger over time and more painful. The patient and I have discussed that conservative measures have been insufficient in alleviating periodic pain in that area and that surgery is a logical choice to resect the exostosis. PROCEDURE IN DETAIL: The patient was brought to the operating room and placed on the operating table in a supine position at which time an aseptic scrub and drape was performed about the patient's left foot. The time-out was performed verifying correct site of surgery and correct procedure. The site was marked and preoperative x- rays were taken. The x-rays were insufficient to appreciate the exostosis given its location. However, the skin protrusion due to the exostosis is clearly visible, it is clearly palpable, easily palpated, and has been confirmed by CT scan. 8 mL of 1% lidocaine with 1:100,000 epinephrine strength was injected in a V-block fashion about the exostosis area on the left foot. A 2 cm incision was made from proximal to distal directly over the palpated exostosis and deepened through the skin and subcutaneous and deep layers to the bone itself where the exostosis was readily identified. There were no sites requiring cauterization and retraction was used to protect surrounding structures. Utilizing a sagittal saw, a portion of the exostosis was resected and sent to pathology for gross and histologic examination. A small bone rongeur was then utilized to removed remainder of exostosis, and the site was then rasped smooth with a power rasp as well as a manual rasp. Copious amounts of normal sterile saline were used throughout the procedure to flush the site and reinspect. Once completed, layered soft tissue closure consisting of horizontal sutures with 4-0 Vicryl were used for the deep and subcutaneous layers and the superficial skin was reapproximated with 4-0 Prolene suture. 8 mL of 0.5% Marcaine plain was infiltrated about the surgical site. Steri-Strips were applied. Betadine-soaked Xeroform gauze was applied. Fluff gauze was applied, Kerlix roll was applied, and Ronnell bandage was applied. The patient tolerated the procedure and the anesthesia well. No complications noted or reported. The patient appeared stable and was able to converse throughout the procedure and did not complain of pain during the procedure. CIRA / PREM /[id number] MTDD
--- NOTE | 2020-04-27 15:51 | CR ---
Foot: 6 fluoroscopic spot views were obtained utilizing C-arm device of the foot. Which foot was not marked on the exam. No discrete abnormality is seen on this fluoroscopic study. Impression: 1. Findings as noted above. Diagnostic code #1 Study was dictated in MDT
== END 2020-04-24 14:00 | disposition home or self-care (01) ==
LOC: MW.SDS 09:58
PROVIDERS: ATTEND Podiatrist Foot & Ankle Surgery
DX: M89.8X7 Other specified disorders of bone, ankle and foot (principal); F41.9 Anxiety disorder, unspecified; J44.9 Chronic obstructive pulmonary disease, unspecified; E78.00 Pure hypercholesterolemia, unspecified; I10 Essential (primary) hypertension; E78.1 Pure hyperglyceridemia; G47.00 Insomnia, unspecified; F17.210 Nicotine dependence, cigarettes, uncomplicated; G62.9 Polyneuropathy, unspecified; K21.9 Gastro-esophageal reflux disease without esophagitis; Z79.899 Other long term (current) drug therapy
CPT/HCPCS: 28120; 76000; 88304; 88311; J2001; J3490

== ENCOUNTER 2022-01-23 10:54 | Day surgery (SDC) | payer MEDICARE, MEDICAID ==
[2022-01-23] MEDS ORDERED: fentaNYL 100 MCG/2 ML SDV ONE (12:21)
[2022-01-23] MEDS ORDERED: Lidocaine 2% 5 ML SDV ONE (12:28)
[2022-01-23] MEDS ORDERED: propofoL 50 ML ONE (12:31)
== END 2022-01-23 14:15 | disposition home or self-care (01) ==
LOC: MW.SDS 10:54
PROVIDERS: ATTEND Surgery
DX: Z12.11 Encounter for screening for malignant neoplasm of colon (principal); D12.6 Benign neoplasm of colon, unspecified; K57.30 Diverticulosis of large intestine without perforation or abscess without bleeding; F41.9 Anxiety disorder, unspecified; J44.9 Chronic obstructive pulmonary disease, unspecified; I10 Essential (primary) hypertension; E78.00 Pure hypercholesterolemia, unspecified; G47.00 Insomnia, unspecified; G62.9 Polyneuropathy, unspecified; F17.210 Nicotine dependence, cigarettes, uncomplicated; Z86.010 Personal history of colon polyps; Z98.890 Other specified postprocedural states; Z79.51 Long term (current) use of inhaled steroids; Z79.899 Other long term (current) drug therapy
CPT/HCPCS: 45380; 88305; J2704; J3010; J7120; 00811